=== PATIENT | male | born 1945 | race Caucasian/White ===

== ENCOUNTER 2018-03-02 09:14 | Emergency (ER) | payer MEDICARE ==
[2018-03-02 10:03] LABS: ABS Basophils 0.1 10^3/ul (0-0.2); ABS Eosinophils 0.4 10^3/ul (0-0.6); ABS Neutrophils 4.7 10^3/ul (1.5-7.7); ABS Nucleated RBC 0 10^3/ul; Eosinophil % 5.2 % (0-6); Hematocrit 43 % (42-52); Lymphocyte % 14.1 % (25-47); Mean Corpuscular HGB Conc 35 g/dl (31-36); Mean Corpuscular Hemoglobin 32 pg (27-31); Mean Corpuscular Volume 92 fL (80-94); Mean Platelet Volume 7.5 um3 (7.4-10.4); Nucleated Red Blood Cells % 0; Platelet Count 301 10^3/ul (150-450); Red Blood Count 4.64 10^6/ul (4.00-5.40); Red Cell Distribution Width 13 % (10.5-15); White Blood Count 7.2 10^3/ul (3.5-10.8)
--- NOTE | 2018-03-02 10:19 | RAD ---
INDICATION: Pneumonia/bronchitis COMPARISON: Chest x-ray 2013 TECHNIQUE: PA and lateral dual-energy views were obtained. FINDINGS: Bones/Soft Tissues: There are no acute bony findings. Cardiomediastinal: The cardiomediastinal silhouette is normal. Lungs: There are no infiltrates. Pleura: There are no pleural effusions. Other: There is mild, partial eventration right hemidiaphragm, unchanged IMPRESSION: NO ACTIVE DISEASE.
[2018-03-02 10:23] LABS: EGFR Non-African American 79.1 (>60)
[2018-03-02] MEDS ORDERED: NS 0.9% 1000 ML* 1,000 ML IV ONE (10:33)
--- NOTE | 2018-03-02 11:41 | ED ---
Respiratory - HPI Summary HPI Summary: Patient is a 72-year-old male presenting to the ED with complaints of severe sore throat secondary to coughing, fatigue, shortness of breath. History of one ICU admission due to found hyponatremia from previous upper respiratory complaint. Sodium 107 on arrival at that time 4 years ago. It is unknown if he obtained a workup for SIADH at the time. He endorses worsening cough over the past several days and has no history of COPD or asthma. He was given azithromycin and prednisone several years ago when having bronchitis and had reactions to these. Symptoms are not worse with lying flat or improved with leaning forward. Denies any fevers, sweats, chills. Has not been taking anything [id number] for medications. - History of Current Complaint Chief Complaint: EDUpperRespComplaint Stated Complaint: COUGH, SORE THROAT Time Seen by Provider: 03/02/18 09:24 Hx Obtained From: Patient Onset/Duration: Gradual Onset Timing: Constant Initial Severity: Moderate Current Severity: Moderate Pain Intensity: 8 Character: Cough (Productive) Sputum Amount: Small Sputum Color: White, Yellow, Green Aggravating Factor(s): URI Alleviating Factor(s): Nothing Associated Signs and Symptoms: URI, Nasal Congestion, Dyspnea - Risk Factors Status Asthmaticus Risk Factors: Negative Pulmonary Embolism Risk Factors: Negative Cardiac Risk Factors: Negative Pseudomonas Risk Factors: Negative Tuberculosis Risk Factors: Negative - Allergy/Home Medications Allergies/Adverse Reactions: Allergies Allergy/AdvReac Type Severity Reaction Status Date / Time azithromycin Allergy Hallucinati Verified 03/03/18 09:36 [From Zithromax Z-Go] ons prednisone Allergy Hallucinati Verified 03/03/18 09:36 ons Home Medications: Home Medications Ibuprofen TAB* [Advil TAB*] 200 mg PO Q6H PRN 03/02/18 [History Confirmed ] Multivitamins/Minerals TAB* [Theragran/minerals TAB*] 1 tab PO DAILY 03/02/18 [ History Confirmed 03/02/18] [place]-3 Fatty Acids (Nf) [Fish Oil (NF)] 1,000 mg PO DAILY 03/02/18 [History Confirmed 03/02/18] Omeprazole CAP* [Prilosec CAP* 20 MG] 20 mg PO DAILY 03/02/18 [History Confirmed 03/02/18] PMH/Surg Hx/FS Hx/Imm Hx Previously Healthy: Yes GI History: Reports: Hx Gastroesophageal Reflux Disease - ON PRILOSEC Sensory History: Reports: Hx Cataracts - LEFT EYE, Hx 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 RIGHT CATARACT EXTRACTION- DR HIGHTOWER 2009 Hx Anesthesia Reactions: No - Immunization History Hx Pertussis Vaccination: No Immunizations Up to Date: Unable to Obtain/Confirm Infectious Disease History: No Infectious Disease History: Denies: Traveled Outside the [place] in Last 30 Days - Social History Occupation: Unemployed Lives: With Family Alcohol Use: Rare Hx Substance Use: No Substance Use Type: Reports: None Hx Tobacco Use: Yes Smoking Status (MU): Former Smoker Type: Cigarettes Review of Systems Positive: Fatigue. Negative: Fever, Chills, Skin Diaphoresis Positive: Sore Throat. Negative: Epistaxis, Ear Ache, Nasal Discharge Negative: Palpitations, Chest Pain Positive: Shortness Of Breath, Cough Negative: Abdominal Pain, Vomiting, Diarrhea Musculoskeletal: Negative Skin: Negative Neurological: Negative All Other Systems Reviewed And Are Negative: Yes Physical Exam Triage Information Reviewed: Yes Vital Signs On Initial Exam: Initial Vitals Temp Pulse Resp BP Pulse Ox 99.9 F 107 22 144/71 94 03/02/18 09:15 03/02/18 09:15 03/02/18 09:15 03/02/18 09:15 03/02/18 09:15 Vital Signs Reviewed: Yes Appearance: Positive: Well-Appearing, Well-Nourished Skin: Positive: Warm, Skin Color Reflects Adequate Perfusion Head/Face: Positive: Normal Head/Face Inspection Eyes: Positive: EOMI, ALEJANDRA, Conjunctiva Clear Neck: Positive: Nontender, No Lymphadenopathy Respiratory/Lung Sounds: Positive: Clear to Auscultation, Breath Sounds Present Cardiovascular: Positive: RRR Musculoskeletal: Positive: Strength/ROM Intact Neurological: Positive: Speech Normal Psychiatric: Positive: Affect/Mood Appropriate AVPU Assessment: Alert Diagnostics - Vital Signs Vital Signs Temp Pulse Resp BP Pulse Ox 03/02/18 09:15 99.9 F 107 22 144/71 94 - Laboratory Lab Results: Lab Results 03/02/18 03/02/18 03/02/18 Range/Units 09:45 09:49 09:49 WBC 7.2 (3.5-10.8) 10^3/ul RBC 4.64 (4.00-5.40) 10^6/ul Hgb 15.0 (14.0-18.0) g/dl Hct 43 (42-52) % MCV 92 (80-94) fL MCH 32 H (27-31) pg MCHC 35 (31-36) g/dl RDW 13 (10.5-15) % Plt Count 301 (150-450) 10^3/ul MPV 7.5 (7.4-10.4) um3 Neut % (Auto) 65.9 (38-83) % Lymph % (Auto) 14.1 L (25-47) % [place] % (Auto) 13.7 H (0-7) % Eos % (Auto) 5.2 (0-6) % Baso % (Auto) 1.1 (0-2) % Absolute Neuts (auto) 4.7 (1.5-7.7) 10^3/ul Absolute Lymphs (auto) 1.0 (1.0-4.8) 10^3/ul Absolute Monos (auto) 1.0 H (0-0.8) 10^3/ul Absolute Eos (auto) 0.4 (0-0.6) 10^3/ul Absolute Basos (auto) 0.1 (0-0.2) 10^3/ul Absolute Nucleated RBC 0 10^3/ul Nucleated RBC % 0 ESR 17 (0-40) mm/Hr Sodium 123 L (135-145) mmol/L Potassium 4.2 (3.5-5.0) mmol/L Chloride 92 L (101-111) mmol/L Carbon Dioxide 22 (22-32) mmol/L Anion Gap 9 (2-11) mmol/L BUN 10 (6-24) mg/dL Creatinine 0.94 (0.67-1.17) mg/dL Est GFR ( Amer) 95.7 (>60) Est GFR (Non-Af Amer) 79.1 (>60) BUN/Creatinine Ratio 10.6 (8-20) Glucose 107 H (70-100) mg/dL Lactic Acid 0.9 (0.5-2.0) mmol/L Calcium 8.8 (8.6-10.3) mg/dL Magnesium 1.7 L (1.9-2.7) mg/dL Total Bilirubin 0.70 (0.2-1.0) mg/dL AST 37 (13-39) U/L ALT 29 (7-52) U/L Alkaline Phosphatase 70 (34-104) U/L Troponin I 0.00 (<0.04) ng/mL C-Reactive Protein 8.58 H (<8.01) mg/L Total Protein 6.9 (6.4-8.9) g/dL Albumin 4.0 (3.2-5.2) g/dL Globulin 2.9 (2-4) g/dL Albumin/Globulin Ratio 1.4 (1-3) Result Diagrams: 03/02/18 09:49 03/02/18 09:45 Lab Statement: Any lab studies that have been ordered have been reviewed, and results considered in the medical decision making process. Disposition - Course Course Of Treatment: Lungs CTA, RRR. Abdomen soft, nontender. No JVD or neck tenderness. No pharyngeal erythema. Dry mucous membranes. Nonedematous and does not seem to be fluid overloaded, with less likeliness of an SIADH component. During the course treatment, the patient is evaluated for cough, sore throat and shortness of breath. Due to previous significant hyponatremia with an ICU admission as well as NA at 123 today, serum osmolality and urine osmolality obtained to assess SIADH. These are both WNL. Likely hyponatremia secondary to bronchitis. X-ray obtained which shows no acute cardiopulmonary findings. Labs are unremarkable except for hyponatremia. We will give Levaquin at this time for bronchitis, worsening shortness of breath and mucus production. Throat pain and extreme fatigue possibly now exacerbated from a component of sleep apnea. I've advised patient to seek out a sleep study and have given him follow up with Dr. Wynne. He is given strict return precautions as hypnatremia is moderate at this point and could worsen with continued infection/URI. I discussed with the patient and he voices understanding of these return precautions. Discussed case with Dr. Retana and Dr. Gamez who agree with plan and discharge at this time. - Diagnoses Provider Diagnoses: Hyponatremia, Bronchitis Discharge - Sign-Out/Discharge Documenting (check all that apply): Discharge/Admit/Transfer - Discharge Plan Condition: Stable Disposition: HOME Prescriptions: guaiFENesin/CODIEN 100MG-10MG* [Robitussin AC 100Mg-10Mg*] 10 ml PO Q4H PRN # 240 udc MDD 60 PRN Reason: Cough Levofloxacin TAB* [Levaquin TAB*] 500 mg PO DAILY #5 tab Patient Education Materials: Sleep Apnea (DC), Acute Bronchitis (ED), Bronchospasm (ED) Referrals: Omega Nichols MD [Primary Care Provider] - Vivien Wynne MD [Medical Doctor] - Additional Instructions: Please call Dr. Wynne's office and Dr. Nichols for follow ups. Either one will be able to set up a sleep study for you to assess for sleep apnea Please also follow up with Dr. Nichols regarding your hyponatremia. If you develop worsening symptoms, return to the ED. Robitussin with codeine for cough as needed Levaquin once daily x 5 days (antibiotic) [id number] Cepacol and Chloraseptic sprays for any discomfort You may also use ibuprofen and Tylenol intermittently for any throat discomfort - Billing Disposition and Condition Condition: STABLE Disposition: Home
[2018-03-02 12:28] VITALS: BP 133/90
== END 2018-03-02 12:27 | disposition home or self-care (01) ==
LOC: ED 09:14
DX: J40 Bronchitis, not specified as acute or chronic (principal); E87.1 Hypo-osmolality and hyponatremia; K21.9 Gastro-esophageal reflux disease without esophagitis; Z87.891 Personal history of nicotine dependence; Z79.899 Other long term (current) drug therapy; Z88.3 Allergy status to other anti-infective agents; Z88.8 Allergy status to other drugs, medicaments and biological substances
CPT/HCPCS: 36415; 71046; 80053; 83605; 83735; 83930; 83935; 84300; 84484; 85025; 85652; 86140; 87040; 99282

== ENCOUNTER 2018-03-03 09:32 | Inpatient (IN) | payer MEDICARE ==
[2018-03-03] MEDS ORDERED: NS 0.9% 1000 ML* 1,000 ML IV ONE (10:13)
[2018-03-03] MEDS ORDERED: Albuterol/Ipratropium NEB.SOL* Albuterol 2.5 MG/Ipratropium 0.5 MG 3 ML INH ONE (10:13)
[2018-03-03 10:30] LABS: ABS Basophils 0.1 10^3/ul (0-0.2); ABS Eosinophils 0.3 10^3/ul (0-0.6); ABS Lymphocytes 0.9 10^3/ul (1.0-4.8); ABS Monocytes 0.8 10^3/ul (0-0.8); ABS Neutrophils 3.7 10^3/ul (1.5-7.7); ABS Nucleated RBC 0 10^3/ul; Eosinophil % 4.9 % (0-6); Hematocrit 39 % (42-52); Mean Corpuscular HGB Conc 36 g/dl (31-36); Mean Corpuscular Hemoglobin 32 pg (27-31); Mean Corpuscular Volume 91 fL (80-94); Mean Platelet Volume 7.1 um3 (7.4-10.4); Nucleated Red Blood Cells % 0.1; Platelet Count 267 10^3/ul (150-450); Red Blood Count 4.33 10^6/ul (4.00-5.40); Red Cell Distribution Width 13 % (10.5-15); White Blood Count 5.9 10^3/ul (3.5-10.8)
[2018-03-03 10:45] LABS: INR 0.99 (0.77-1.02)
[2018-03-03 10:48] LABS: EGFR Non-African American 79.1 (>60)
[2018-03-03] MEDS ORDERED: Sodium Chloride 3% HYPERTONIC* 500 ML IVPB ONE (11:36)
[2018-03-03] MEDS ORDERED: Iohexol 350* (CONTRAST) 500 ML MDV IV ONE ×2 (11:39→12:00)
[2018-03-03] MEDS ORDERED: hydrOXYzine HCL TAB* 10 MG PO PRN (11:41)
[2018-03-03] MEDS ORDERED: Acetaminophen TAB* 325 MG PO PRN (11:46)
--- NOTE | 2018-03-03 12:21 | RAD ---
INDICATION: Chest pain. Short of breath. Evaluate for pulmonary embolus. COMPARISON: Chest x-ray March 02, 2018; CT chest July 25, 2014 TECHNIQUE: Axial source images were obtained from the thoracic inlet to the hemidiaphragms following administration of a total of [address] angiographic technique was utilized. There were 2 injections due to an adequate pulmonary arterial opacification the first injection. Coronal and sagittal reconstructed images were acquired. CHEST FINDINGS: Neck/thyroid: The visualized neck to include the thyroid appear normal. Chest wall: There are no acute abnormalities of the bony thorax or chest wall. There is no supraclavicular, infraclavicular, or axillary lymphadenopathy. Lungs : There are no new pulmonary parenchymal masses or infiltrates. There is a stable 6 mm opacity in the right lung base. Long-term stability is consistent with a benign process The pulmonary interstitium appears normal. There are no endobronchial lesions. Cardiomediastinal structures: There is no CT evidence of acute pulmonary embolic disease. The heart is normal in size. There is no pericardial effusion. There is no evidence of aortic aneurysm or dissection. There is no mediastinal or hilar adenopathy. The esophagus appears normal. Pleura : There are no pleural-based masses or effusions. Other: There is a small moderate-sized hiatal hernia. IMPRESSION: DESPITE UTILIZING 2 INJECTIONS, THIS EXAMINATION IS NONDIAGNOSTIC FOR ACUTE PULMONARY EMBOLI DUE TO POOR OPACIFICATION OF THE PULMONARY ARTERIAL VESSELS. THERE IS NO CENTRAL OR SADDLE EMBOLUS. LUNGS ARE CLEAR
--- NOTE | 2018-03-03 14:01 | HP ---
CC: Dr. Nichols * HISTORY AND PHYSICAL: DATE OF ADMISSION: 03/03/18 ATTENDING PHYSICIAN: Dr. Jose Merritt * (dictation provided by Heidy Marquez NP). CHIEF COMPLAINT: Shortness of breath and cough. HISTORY OF PRESENT ILLNESS: Mr. Cabral is a 72-year-old male with a past medical history of GERD and an episode of hyponatremia associated with an upper respiratory infection in 2013 who presents today to the hospital with concern for cough causing inability to sleep. Mr. Cabral states that he first began to feel unwell on Monday. At that time, he thought he had a mild cold. Throughout the week he has felt worse and has had a persistent nagging productive cough. He has had great difficulty sleeping because of the cough and states he has not slept since Monday. He denies any specific shortness of breath. He has had no chest pain. He has had no fever. He has had a poor appetite, although he has been drinking plenty of water. He came to the emergency room yesterday for these symptoms and had a workup including a chest x - ray that was normal. His labs showed a normal WBC. Vitals were stable. He did have a sodium of 123 with urine sodium and osmolality consistent with SIADH. However, he has a history of hyponatremia in our records on multiple occasions back in 2013. He was prescribed levaquin and discharged to home. Today he continued to feel poorly and could not sleep and therefore decided to come back to the emergency room. He notes that while waiting for his landlord to pick him up for transport this morning he did become very dizzy and fall out of his chair. Today, Mr. Cabral has been found to have a worsening hyponatremia with a sodium of 117. He is mentating appropriately. His vitals are stable. His other labs are remarkable only for an elevated CK to 1042. His D-dimer is 387. A CTA of the chest is pending. PAST MEDICAL HISTORY: 1. GERD. 2. Hyponatremia. MEDICATIONS: 1. Ibuprofen 200 mg p.o. q.6 hours p.r.n. 2. Levaquin 500 mg p.o. daily (prescribed yesterday). 3. Multivitamin with mineral 1 tab p.o. daily. 4. [place]-3 fatty acid 1000 mg p.o. daily. 5. Omeprazole 20 mg p.o. daily. 6. Guaifenesin with codeine 100 mg-10 mg, 10 mL p.o. q.4 hours p.r.n. ALLERGIES: To AZITHROMYCIN and PREDNISONE. FAMILY HISTORY: The patient reports that his mother is still alive and well at age 90. Father when he was 4 years old in an accident. SOCIAL HISTORY: The patient is a former smoker, he quit about 30 years ago, but does have over 25 pack-year history of smoking. He drinks about 4 beers per week. He states his friend, Sigifredo Aguirre, would be the healthcare proxy. REVIEW OF SYSTEMS: A 14-point review of systems was completed with Mr. Cabral and all those not mentioned above were negative. PHYSICAL EXAMINATION GENERAL: Mr. Cabral is lying in the bed. He is in absolutely no acute distress. VITAL SIGNS: Temperature 98.5, pulse rate 91, respiratory rate 18, O2 saturation 94% on room air, blood pressure 134/73. LUNGS: Clear to auscultation bilaterally. No accessory muscle use. Good aeration. HEART: S1, S2. No murmur, rub, or gallop and regular. ABDOMEN: Soft, nontender with bowel sounds positive x4. EXTREMITIES: No cyanosis or edema. NEURO: He is alert. He is oriented x3. He moves all extremities equally. There is no facial asymmetry or focal weakness. Extraocular movements are intact. SKIN: Intact. DIAGNOSTIC STUDIES/LAB DATA: WBC 5.9, hemoglobin 14.0, hematocrit 39, platelet count 267. INR is 0.99. D-dimer 387. Sodium is reported verbally to be 117, potassium 4.1, chloride 84, serum bicarbonate 26, BUN 9, creatinine 0.94. Lactic acid 0.8. Magnesium 1.7. Total CK 1042. CK-MB 7.1. Troponin 0.01. CRP 16.92. BNP is 23. Lipase less than 10. Chest x-ray from yesterday showed no acute process. Urinalysis from yesterday showed urine osm of 574 and a urine random sodium of 109. ASSESSMENT: Mr. Cabral is a 72-year-old male with a past medical history of admission to our hospital in 2013 with hyponatremia associated with an episode of bronchitis and upper respiratory infection, who returns today with persistent worsening cough and worsening hyponatremia. Our plans are for inpatient admission as I expect his length of stay to be greater than 2 days for the followin. Hyponatremia: This episode sounds very similar to a previous episode back in 2014. At that time, he had a prolonged hospitalization, required 3% saline with SIADH thought to be secondary to respiratory infection. Though he was dizzy earlier, he does not appear to be at all symptomatic from his hyponatremia. Plan to fluid restrict and recheck his sodium level this afternoon. At that point, consideration will be given for possible initiation of 3% saline. In terms of etiology, his urine studies are consistent with SIADH. His chest x-ray was normal, but I am going to obtain a CTA chest now due to elevated D-dimer, history of a pulmonary nodule (which was not followed up on in 2013) and a long-term history of smoking. 2. Bronchitis: The patient has no evidence of acute infection. He was started on Levaquin yesterday, but I am going to discontinue that as I do not think there is any real indication for antibiotics at this point pending review of the CTA chest. 3. Gastroesophageal reflux disease. Continue omeprazole. 4. DVT prophylaxis: Heparin subcu. 5. Code status is full code. TIME SPENT: Approximately 60 minutes was spent in the admission of this patient , more than half of that time was spent with the patient at the bedside reviewing the events leading up to this hospitalization, performing the physical examination, and reviewing my plan of care. HEIDY MARQUEZ NP [id number]/[facility] #: [id number] YOSELIN
--- NOTE | 2018-03-03 15:40 | PN ---
Progress Note - Progress Note Date of Service: 03/03/18 Note: Critical Care Attendin72 y/o male with a recent Hx of nonproductive cough associated with increased thirst, increased water intake, and a serum sodium of 117 mEq/L. There are no symptoms consistent with hyponatremia. Patient claims he is unable to sleep because of cough. Patient has past Hx hyponatremia associated with infection ( in 2013) with urinary indices consistent with SIADH at that time. 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 This condition can be associated with any source of stress, such as loss of sleep (which the patient complains of). Recommend: Water restriction for now (hypertonic saline is not necessary). If the patient does not tolerate water restriction (which seems likely in this case ), then Rx with tolvaptan (vasopressin receptor jen) would be helpful - however, this drug is not available through the hospital formulary. Case discussed with Heidy Marquez.
--- NOTE | 2018-03-03 15:49 | ED ---
Carla Gómez Jade, scribed for Mark Champion MD on 03/03/18 at 1001 . Respiratory - HPI Summary HPI Summary: Pt is a 72 y/o male who presents to the ED c/o SOB. He was here yesterday for the same complaint. Pt has had bronchitis for 1 week, which has been getting worse. He states he has not gotten any sleep for 5 days, because every time he lays flat he becomes SOB and starts coughing. He also states hes had no appetite since yesterday, and is mildly nauseated. Pt has been taking Ibuprofen and Benadryl for his symptoms. Yesterday, it was thought he maybe had sleep apnea as well, and was prescribed antibiotics and Robitussin with codeine, which didnt help him sleep. Pt also takes Prilosec. He denies any CP, abdominal bloating, or ankle swelling. No PMHx of CHF. PMHx hospitalization for hyponatremia. Today and yesterday he has mildly low sodium levels. - History of Current Complaint Chief Complaint: EDShortnessOfBreath Stated Complaint: DIFF BREATHING Time Seen by Provider: 03/03/18 09:38 Hx Obtained From: Patient Onset/Duration: Gradual Onset, Still Present Current Severity: None Pain Intensity: 0 Character: Cough (Nonproductive), Orthopnea Sputum Amount: Scant Aggravating Factor(s): Deep Breaths Alleviating Factor(s): Nothing Associated Signs and Symptoms: SOB - Allergy/Home Medications Allergies/Adverse Reactions: Allergies Allergy/AdvReac Type Severity Reaction Status Date / Time azithromycin Allergy Hallucinati Verified 03/03/18 09:36 [From Zithromax Z-Go] ons prednisone Allergy Hallucinati Verified 03/03/18 09:36 ons PMH/Surg Hx/FS Hx/Imm Hx GI History: Reports: Hx Gastroesophageal Reflux Disease - ON PRILOSEC Sensory History: Reports: Hx Cataracts - LEFT EYE, Hx 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 RIGHT CATARACT EXTRACTION- DR HIGHTOWER 2009 Hx Anesthesia Reactions: No Infectious Disease History: No Infectious Disease History: Denies: Traveled Outside the [place] in Last 30 Days - Family History Known Family History: Positive: Other - Cancer (mother) - Social History Alcohol Use: Rare Substance Use Type: Reports: None Smoking Status (MU): Former Smoker Type: Cigarettes Review of Systems Negative: Fever Cardiovascular: Other - NEGATIVE: pedal edema Negative: Chest Pain Positive: Shortness Of Breath, Cough Gastrointestinal: Other - NEGATIVE: bloating Positive: Nausea, Other - Decreased appetite All Other Systems Reviewed And Are Negative: Yes Physical Exam - Summary Physical Exam Summary: General: well-appearing, no pain distress Skin: warm, color reflects adequate perfusion, dry Head: normal Eyes: EOMI, ALEJANDRA ENT: normal Neck: supple, nontender Respiratory: breath sounds present, rhonchi Cardiovascular: RRR Abdomen: soft, nontender Bowel: present Musculoskeletal: normal, strength/ROM intact Neurological: sensory/motor intact, A&O x3 Psychological: affect/mood appropriate Triage Information Reviewed: Yes Vital Signs On Initial Exam: Initial Vitals Temp Pulse Resp BP Pulse Ox 98.5 F 97 20 156/80 94 03/03/18 09:33 03/03/18 09:33 03/03/18 09:33 03/03/18 09:33 03/03/18 09:33 Vital Signs Reviewed: Yes Diagnostics - Vital Signs Vital Signs Temp Pulse Resp BP Pulse Ox 03/03/18 09:33 98.5 F 97 20 156/80 94 - Laboratory Lab Results: Lab Results 03/03/18 03/03/18 03/03/18 Range/Units 10:21 10:21 10:21 WBC 5.9 (3.5-10.8) 10^3/ul RBC 4.33 (4.00-5.40) 10^6/ul Hgb 14.0 (14.0-18.0) g/dl Hct 39 L (42-52) % MCV 91 (80-94) fL MCH 32 H (27-31) pg MCHC 36 (31-36) g/dl RDW 13 (10.5-15) % Plt Count 267 (150-450) 10^3/ul MPV 7.1 L (7.4-10.4) um3 Neut % (Auto) 64.0 (38-83) % Lymph % (Auto) 16.0 L (25-47) % [place] % (Auto) 13.9 H (0-7) % Eos % (Auto) 4.9 (0-6) % Baso % (Auto) 1.2 (0-2) % Absolute Neuts (auto) 3.7 (1.5-7.7) 10^3/ul Absolute Lymphs (auto) 0.9 L (1.0-4.8) 10^3/ul Absolute Monos (auto) 0.8 (0-0.8) 10^3/ul Absolute Eos (auto) 0.3 (0-0.6) 10^3/ul Absolute Basos (auto) 0.1 (0-0.2) 10^3/ul Absolute Nucleated RBC 0 10^3/ul Nucleated RBC % 0.1 INR (Anticoag Therapy) 0.99 (0.77-1.02) APTT 31.0 (26.0-36.3) seconds D-Dimer, Quantitative 387 H (Less Than 230) ng/mL Sodium 117 L* (135-145) mmol/L Potassium 4.1 (3.5-5.0) mmol/L Chloride 84 L (101-111) mmol/L Carbon Dioxide 26 (22-32) mmol/L Anion Gap 7 (2-11) mmol/L BUN 9 (6-24) mg/dL Creatinine 0.94 (0.67-1.17) mg/dL Est GFR ( Amer) 95.7 (>60) Est GFR (Non-Af Amer) 79.1 (>60) BUN/Creatinine Ratio 9.6 (8-20) Glucose 100 (70-100) mg/dL Lactic Acid (0.5-2.0) mmol/L Calcium 8.9 (8.6-10.3) mg/dL Magnesium 1.7 L (1.9-2.7) mg/dL Total Bilirubin 0.80 (0.2-1.0) mg/dL AST 41 H (13-39) U/L ALT 28 (7-52) U/L Alkaline Phosphatase 63 (34-104) U/L Total Creatine Kinase 1042 H (10-223) U/L CK-MB (CK-2) 7.1 H (0.6-6.3) ng/mL Troponin I 0.01 (<0.04) ng/mL C-Reactive Protein 16.92 H (<8.01) mg/L B-Natriuretic Peptide ( - 100) pg/mL Total Protein 6.3 L (6.4-8.9) g/dL Albumin 3.8 (3.2-5.2) g/dL Globulin 2.5 (2-4) g/dL Albumin/Globulin Ratio 1.5 (1-3) Lipase < 10 L (11.0-82.0) U/L TSH 3.64 (0.34-5.60) mcIU/mL 03/03/18 03/03/18 Range/Units 10:21 10:21 WBC (3.5-10.8) 10^3/ul RBC (4.00-5.40) 10^6/ul Hgb (14.0-18.0) g/dl Hct (42-52) % MCV (80-94) fL MCH (27-31) pg MCHC (31-36) g/dl RDW (10.5-15) % Plt Count (150-450) 10^3/ul MPV (7.4-10.4) um3 Neut % (Auto) (38-83) % Lymph % (Auto) (25-47) % [place] % (Auto) (0-7) % Eos % (Auto) (0-6) % Baso % (Auto) (0-2) % Absolute Neuts (auto) (1.5-7.7) 10^3/ul Absolute Lymphs (auto) (1.0-4.8) 10^3/ul Absolute Monos (auto) (0-0.8) 10^3/ul Absolute Eos (auto) (0-0.6) 10^3/ul Absolute Basos (auto) (0-0.2) 10^3/ul Absolute Nucleated RBC 10^3/ul Nucleated RBC % INR (Anticoag Therapy) (0.77-1.02) APTT (26.0-36.3) seconds D-Dimer, Quantitative (Less Than 230) ng/mL Sodium (135-145) mmol/L Potassium (3.5-5.0) mmol/L Chloride (101-111) mmol/L Carbon Dioxide (22-32) mmol/L Anion Gap (2-11) mmol/L BUN (6-24) mg/dL Creatinine (0.67-1.17) mg/dL Est GFR ( Amer) (>60) Est GFR (Non-Af Amer) (>60) BUN/Creatinine Ratio (8-20) Glucose (70-100) mg/dL Lactic Acid 0.8 (0.5-2.0) mmol/L Calcium (8.6-10.3) mg/dL Magnesium (1.9-2.7) mg/dL Total Bilirubin (0.2-1.0) mg/dL AST (13-39) U/L ALT (7-52) U/L Alkaline Phosphatase (34-104) U/L Total Creatine Kinase (10-223) U/L CK-MB (CK-2) (0.6-6.3) ng/mL Troponin I (<0.04) ng/mL C-Reactive Protein (<8.01) mg/L B-Natriuretic Peptide 23 ( - 100) pg/mL Total Protein (6.4-8.9) g/dL Albumin (3.2-5.2) g/dL Globulin (2-4) g/dL Albumin/Globulin Ratio (1-3) Lipase (11.0-82.0) U/L TSH (0.34-5.60) mcIU/mL Result Diagrams: 03/03/18 10:21 03/03/18 10:21 Lab Statement: Any lab studies that have been ordered have been reviewed, and results considered in the medical decision making process. - CT Chest/Thorax CTA CT Interpretation Completed By: Radiologist - 11:32: DESPITE UTILIZING 2 INJECTIONS, THIS EXAMINATION IS NONDIAGNOSTIC FOR ACUTE PULMONARY EMBOLI DUE TO POOR OPACIFICATION OF THE PULMONARY ARTERIAL VESSELS. THERE IS NO CENTRAL OR SADDLE EMBOLUS. LUNGS ARE CLEAR. ED physician reviewed radiology report. - EKG 10:25 Cardiac Rate: NL - 94 bpm EKG Rhythm: Sinus Rhythm ST Segment: Normal Ectopy: None Disposition - Course Course Of Treatment: ADMIT HOSPITALIST. CRITICAL CARE TIME LESS THAN 30 MINUTES. - Diagnoses Provider Diagnoses: Hyponatremia, Dyspnea Discharge - Sign-Out/Discharge Documenting (check all that apply): Discharge/Admit/Transfer - Admit - Discharge Plan Condition: Stable Disposition: ADMITTED TO [facility] - Billing Disposition and Condition Condition: STABLE Disposition: Admitted to [facility] The documentation as recorded by the jovitaibCarla chaidez Jade accurately reflects the service I personally performed and the decisions made by me, Mark Champion MD.
[2018-03-03] MEDS: Heparin VIAL(*) 5000 UNITS/ML VIAL (FIVE THOUSAND) SUBCUT SCH ×2 (16:01→21:27)
[2018-03-03] MEDS: guaiFENesin/CODIEN 100MG-10MG* 5 ML UDC PO PRN (20:16)
[2018-03-03] MEDS: Ibuprofen TAB* 400 MG PO PRN (21:57)
[2018-03-04] MEDS: hydrOXYzine HCL TAB* 25 MG PO PRN ×2 (00:20→19:52)
[2018-03-04] MEDS: Benzonatate CAP* 100 MG PO PRN ×2 (00:20→19:52)
[2018-03-04] MEDS: guaiFENesin/CODIEN 100MG-10MG* 5 ML UDC PO PRN ×4 (00:45→19:53)
[2018-03-04] MEDS: Heparin VIAL(*) 5000 UNITS/ML VIAL (FIVE THOUSAND) SUBCUT SCH ×3 (05:41→21:57)
[2018-03-04] MEDS: Omeprazole CAP* 20 MG PO SCH (07:46)
[2018-03-04] MEDS ORDERED: Magnesium Sulfate 2 GM IV* 2 GM/50 ML BAG IVPB ONE (08:39)
[2018-03-04 12:38] LABS: EGFR Non-African American 68.1 (>60)
[2018-03-04] MEDS: Ibuprofen TAB* 400 MG PO PRN (15:33)
[2018-03-04] MEDS: Albuterol 2.5 MG/3 ML NEB.SOL* (0.083%) INH PRN (15:41)
[2018-03-04] MEDS: Benzocaine/Menthol LOZ* 1 LOZENGE MT PRN (15:57)
--- NOTE | 2018-03-04 17:41 | PN ---
Subjective Date of Service: 03/04/18 Interval History: Patient asymptomatic of dizziness, unsteady gait, confusion, or other signs of sodium depletion. Complains of continues cough, wheezing and SOB. Denies CP, N/V , F/C, abdominal pain, diarrhea, or dysuria. States he had a poor reaction previously to prednisone but got good relief of his SOB with albuterol inhaler. Family History: Unchanged from Admission Social History: Unchanged from Admission Past Medical History: Unchanged from Admission Objective Active Medications: Albuterol (Ventolin 2.5 Mg/3 Ml Neb.Sofya*) 2.5 mg INH Q4H PRN PRN Reason: SOB/WHEEZING Last Admin: 03/04/18 15:41 Dose: 2.5 mg Benzonatate (Tessalon Cap*) 100 mg PO BID PRN PRN Reason: COUGH Last Admin: 03/04/18 00:20 Dose: 100 mg Guaifenesin/Codeine Phosphate (Robitussin Ac 100mg-10mg*) 10 ml PO Q4H PRN PRN Reason: COUGH Last Admin: 03/04/18 12:43 Dose: 10 ml Heparin Sodium (Porcine) (Heparin Vial(*)) 5,000 units SUBCUT Q8HR [facility] Last Admin: 03/04/18 12:43 Dose: 5,000 units Hydroxyzine HCl (Atarax Tab*) 25 mg PO BEDTIME PRN PRN Reason: INSOMNIA Last Admin: 03/04/18 00:20 Dose: 25 mg Ibuprofen (Motrin Tab*) 400 mg PO Q6H PRN PRN Reason: HEADACHE/DISCOMFORT Last Admin: 03/04/18 15:33 Dose: 400 mg Omeprazole (Prilosec Cap*) 20 mg PO 0730 [facility] Last Admin: 03/04/18 07:46 Dose: 20 mg Sodium Chloride (Sodium Chloride Tab*) 1 gm PO DAILY [facility] Throat Lozenges (Chloraseptic Maryana*) 1 maryana MT Q6H PRN PRN Reason: SORE THROAT Last Admin: 03/04/18 15:57 Dose: 1 maryana Vital Signs - 8 hr 03/04/18 03/04/18 03/04/18 11:54 12:20 14:55 Temperature 98.1 F 98.1 F Pulse Rate 70 82 Respiratory 18 17 18 Rate Blood Pressure 142/73 132/80 (mmHg) O2 Sat by Pulse 98 98 Oximetry 03/04/18 03/04/18 03/04/18 15:24 15:27 15:44 Temperature 98.4 F Pulse Rate 95 105 Respiratory 18 16 Rate Blood Pressure 104/43 106/58 (mmHg) O2 Sat by Pulse 93 94 Oximetry Oxygen Devices in Use Now: None Appearance: Patient is a 72yo male who appears stated age and is sitting in the bed in [facility]. Eyes: No Scleral Icterus, PERRLA Ears/Nose/Mouth/Throat: NL Teeth, Lips, Gums, Clear Oropharnyx, Mucous Membranes Moist Neck: NL Appearance and Movements; NL JVP, Trachea Midline Respiratory: Symmetrical Chest Expansion and Respiratory Effort, - - Wheezes and Rhonchi throughout. Cardiovascular: NL Sounds; No Murmurs; No JVD, RRR, - - Trace LE edema. Abdominal: NL Sounds; No Tenderness; No Distention, No Hepatosplenomegaly Lymphatic: No Cervical Adenopathy Extremities: No Edema, No Clubbing, Cyanosis Skin: No Rash or Ulcers, No Nodules or Sclerosis Neurological: Alert and Oriented x 3, NL Sensation, NL Muscle Strength and Tone , - - CN II-XII intact. Result Diagrams: 03/03/18 10:21 03/04/18 16:50 Additional Lab and Data: Lab Results Microbiology and Other Data: Microbiology 03/03/18 13:15 Nasal Screen MRSA (PCR) - Final Nasal Mrsa Not Detected Assess/Plan/Problems-Billing Assessment: Patient is a 72yo male with a PMH for hyponatremia, here with bronchitis and recurrent hyponatremia improving slowly with fluid restriction. - Patient Problems (1) Hyponatremia Current Visit: No Status: Acute Priority: High Onset Date: 05/05/14 Code (s): E87.1 - HYPO-OSMOLALITY AND HYPONATREMIA SNOMED Code(s): 02351208 Comment: Initially sodium of 117. Previous episode with sodium to 108 in setting of respiratory infection. Improving. Goal of improvement of 6 in sodium level daily. Begin salt tablets tomorrow. 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 Will check cortisol in AM. TSH normal. Grossly asymptomatic. (2) Bronchitis Current Visit: Yes Status: Acute Code(s): J40 - BRONCHITIS, NOT SPECIFIED ACUTE OR CHRONIC SNOMED Code(s): 77305325 Comment: Likely viral. No indication for antibiotics. Albuterol inhaler and supportive care. Previously intolerant of systemic steroids. (3) Rhabdomyolysis Current Visit: Yes Status: Acute Code(s): M62.82 - RHABDOMYOLYSIS SNOMED Code(s): 792936665 Comment: CPK elevated and trending up. Will order myogobin and follow. Unknown cause. No fall or other trauma. Possibly from viral infection concurrently causing bronchitis. (4) DNR (do not resuscitate) Current Visit: Yes Status: Acute (5) DVT prophylaxis Current Visit: Yes Status: Acute Code(s): LSS5161 - SNOMED Code(s): 371824014 Comment: Heparin SubQ. Status and Disposition: Inpatient.
[2018-03-05] MEDS: guaiFENesin/CODIEN 100MG-10MG* 5 ML UDC PO PRN (01:13)
[2018-03-05] MEDS: Benzocaine/Menthol LOZ* 1 LOZENGE MT PRN ×3 (02:54→21:54)
[2018-03-05] MEDS: Omeprazole CAP* 20 MG PO SCH (05:44)
[2018-03-05] MEDS: Heparin VIAL(*) 5000 UNITS/ML VIAL (FIVE THOUSAND) SUBCUT SCH ×3 (05:45→21:55)
[2018-03-05] MEDS ORDERED: Omeprazole CAP* 20 MG PO SCH (06:00)
[2018-03-05 07:02] LABS: ABS Basophils 0.1 10^3/ul (0-0.2); ABS Eosinophils 0.6 10^3/ul (0-0.6); ABS Lymphocytes 1.3 10^3/ul (1.0-4.8); ABS Monocytes 0.9 10^3/ul (0-0.8); ABS Neutrophils 3.8 10^3/ul (1.5-7.7); ABS Nucleated RBC 0 10^3/ul; Eosinophil % 9.3 % (0-6); Hematocrit 39 % (42-52); Hemoglobin 13.9 g/dl (14.0-18.0); Lymphocyte % 18.8 % (25-47); Mean Corpuscular HGB Conc 36 g/dl (31-36); Mean Corpuscular Hemoglobin 33 pg (27-31); Mean Corpuscular Volume 91 fL (80-94); Mean Platelet Volume 7.3 um3 (7.4-10.4); Nucleated Red Blood Cells % 0; Platelet Count 282 10^3/ul (150-450); Red Blood Count 4.26 10^6/ul (4.00-5.40); Red Cell Distribution Width 13 % (10.5-15); White Blood Count 6.6 10^3/ul (3.5-10.8)
[2018-03-05 07:16] LABS: EGFR Non-African American 63.3 (>60)
[2018-03-05] MEDS: Ibuprofen TAB* 400 MG PO PRN ×2 (07:38→21:53)
[2018-03-05] MEDS: Sodium Chloride TAB* 1 GM PO SCH (07:38)
[2018-03-05] MEDS: Albuterol 2.5 MG/3 ML NEB.SOL* (0.083%) INH PRN ×2 (10:43→18:22)
--- NOTE | 2018-03-05 16:37 | PN ---
Subjective Date of Service: 03/05/18 Interval History: Patient feeling better, breathing improved, decreased cough. Increased sputum production and decreased SOB with use of flutter valve particularly. Patient denies dizziness, F/C, N/V, abdominal pain, diarrhea, CP, weakness, changes in vision or other pain. Family History: Unchanged from Admission Social History: Unchanged from Admission Past Medical History: Unchanged from Admission Objective Active Medications: Albuterol (Ventolin 2.5 Mg/3 Ml Neb.Sofya*) 2.5 mg INH Q4H PRN PRN Reason: SOB/WHEEZING Last Admin: 03/05/18 10:43 Dose: 2.5 mg Benzonatate (Tessalon Cap*) 100 mg PO BID PRN PRN Reason: COUGH Last Admin: 03/04/18 19:52 Dose: 100 mg Guaifenesin/Codeine Phosphate (Robitussin Ac 100mg-10mg*) 10 ml PO Q4H PRN PRN Reason: COUGH Last Admin: 03/05/18 01:13 Dose: 10 ml Heparin Sodium (Porcine) (Heparin Vial(*)) 5,000 units SUBCUT Q8HR [facility] Last Admin: 03/05/18 13:52 Dose: 5,000 units Hydroxyzine HCl (Atarax Tab*) 25 mg PO BEDTIME PRN PRN Reason: INSOMNIA Last Admin: 03/04/18 19:52 Dose: 25 mg Ibuprofen (Motrin Tab*) 400 mg PO Q6H PRN PRN Reason: HEADACHE/DISCOMFORT Last Admin: 03/05/18 07:38 Dose: 400 mg Omeprazole (Prilosec Cap*) 20 mg PO 0730 [facility] Last Admin: 03/05/18 05:44 Dose: 20 mg Sodium Chloride (Sodium Chloride Tab*) 1 gm PO DAILY [facility] Last Admin: 03/05/18 07:38 Dose: 1 gm Throat Lozenges (Chloraseptic Maryana*) 1 maryana MT Q6H PRN PRN Reason: SORE THROAT Last Admin: 03/05/18 13:52 Dose: 1 maryana Vital Signs - 8 hr 03/05/18 03/05/18 03/05/18 10:43 11:44 15:10 Temperature 98.1 F 99.1 F Pulse Rate 102 99 89 Respiratory 16 18 18 Rate Blood Pressure 103/64 114/59 (mmHg) O2 Sat by Pulse 95 93 92 Oximetry Oxygen Devices in Use Now: None Appearance: Patient is a 72yo male who appears stated age and is sitting in the bed in [facility]. Eyes: No Scleral Icterus, PERRLA Ears/Nose/Mouth/Throat: NL Teeth, Lips, Gums, Clear Oropharnyx, Mucous Membranes Moist Neck: NL Appearance and Movements; NL JVP, Trachea Midline Respiratory: Symmetrical Chest Expansion and Respiratory Effort, - - Wheezes and Rhonchi throughout. No improvement from previous exam. Cardiovascular: NL Sounds; No Murmurs; No JVD, RRR, No Edema Abdominal: NL Sounds; No Tenderness; No Distention, No Hepatosplenomegaly Lymphatic: No Cervical Adenopathy Extremities: No Edema, No Clubbing, Cyanosis Skin: No Rash or Ulcers, No Nodules or Sclerosis Neurological: Alert and Oriented x 3, NL Sensation, NL Muscle Strength and Tone , - - CN II-XII intact. Result Diagrams: 03/05/18 06:32 03/05/18 15:46 Additional Lab and Data: Lab Results Microbiology and Other Data: Microbiology 03/03/18 13:15 Nasal Screen MRSA (PCR) - Final Nasal Mrsa Not Detected Assess/Plan/Problems-Billing Assessment: Patient is a 72yo male with a PMH for hyponatremia, here with bronchitis and recurrent hyponatremia improving slowly with fluid restriction. - Patient Problems (1) Hyponatremia Current Visit: No Status: Acute Priority: High Onset Date: 05/05/14 Code (s): E87.1 - HYPO-OSMOLALITY AND HYPONATREMIA SNOMED Code(s): 85241941 Comment: Initially sodium of 117. Previous episode with sodium to 108 in setting of respiratory infection. Improving. Most recently 128. Goal of improvement of 6 in sodium level daily. Begin salt tablets tomorrow. 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 Cortisol and TSH normal. Grossly asymptomatic. (2) Bronchitis Current Visit: Yes Status: Acute Code(s): J40 - BRONCHITIS, NOT SPECIFIED ACUTE OR CHRONIC SNOMED Code(s): 84036917 Comment: Likely viral. No indication for antibiotics. Albuterol inhaler and supportive care. Previously intolerant of systemic steroids. (3) Rhabdomyolysis Current Visit: Yes Status: Acute Code(s): M62.82 - RHABDOMYOLYSIS SNOMED Code(s): 326450164 Comment: CPK elevated and trending down today. Will order myogobin and follow. Unknown cause. No fall or other trauma. Possibly from viral infection concurrently causing bronchitis. Will monitor. No evidence of MARCK. (4) DVT prophylaxis Current Visit: Yes Status: Acute Code(s): YBQ7475 - SNOMED Code(s): 033150414 Comment: Heparin SubQ. (5) DNR (do not resuscitate) Current Visit: Yes Status: Acute Status and Disposition: Inpatient.
[2018-03-05] MEDS: hydrOXYzine HCL TAB* 25 MG PO PRN (23:24)
[2018-03-06] MEDS: Heparin VIAL(*) 5000 UNITS/ML VIAL (FIVE THOUSAND) SUBCUT SCH (05:54)
[2018-03-06 08:23] LABS: EGFR Non-African American 75.4 (>60)
[2018-03-06] MEDS: Sodium Chloride TAB* 1 GM PO SCH (08:43)
[2018-03-06] MEDS: Ibuprofen TAB* 400 MG PO PRN (08:44)
[2018-03-06] MEDS: Omeprazole CAP* 20 MG PO SCH (08:44)
[2018-03-06 08:58] VITALS: BP 135/50
--- NOTE | 2018-03-07 23:40 | DS ---
CC: Dr. Omega Nichols * DISCHARGE SUMMARY: DATE OF ADMISSION: 03/03/18 DATE OF DISCHARGE: 03/06/18 PRIMARY CARE PROVIDER: Dr. Omega Nichols. MY ATTENDING PHYSICIAN WHILE IN THE HOSPITAL: Dr. Casey Vo* (DICTATED BY STEPHANIE HILL) PRIMARY DISCHARGE DIAGNOSES: 1. Hyponatremia. 2. Bronchitis. SECONDARY DISCHARGE DIAGNOSES: 1. History of severe hyponatremia. 2. Gastroesophageal reflux disease. STUDIES DONE WHILE IN THE HOSPITAL: Chest thorax CTA from 03/03/18, read as despite utilizing 2 injections the examination is nondiagnostic for acute pulmonary emboli due to poor opacification of the pulmonary artery vessels. There is no central or saddle embolus. Lungs are clear. Electrocardiogram from 03/03/18, read as normal sinus rhythm, left axis deviation, no hypertrophy or enlargement, no blocks, rate 94, QTc 444. No other abnormalities. MEDICATIONS AT DISCHARGE: 1. Omeprazole 20 mg p.o. daily. 2. Fish oil 1000 mg p.o. daily. 3. Multivitamin 1 tab p.o. daily. 4. Robitussin. 5. Codeine 10 mL p.o. q.4 hours as needed. 6. Albuterol inhaler 1 puff inhalation q.4 hours as needed. 7. Chloraseptic lozenge one lozenge q.6 hours as needed. 8. Benzonatate 100 mg p.o. b.i.d. as needed. 9. Hydroxyzine 25 mg p.o. at bedtime as needed. 10. Ibuprofen 400 mg p.o. q.6 hours as needed. 11. Sodium chloride 1 g p.o. daily. New medications at discharge: 1. Albuterol. 2. Chloraseptic 3. Tessalon 4. Hydroxyzine. 5. Ibuprofen. 6. Sodium chloride. Medications discontinued at discharge: Levofloxacin. HOSPITAL COURSE: This is a brief summary of the patient's presentation. For more details, please see the history and physical from Heidy Marquez NP on . In brief, the patient is a 72-year-old male with past medical history significant for the above who presented with mild productive cough, difficulty sleeping and pain in his left side related to cough. The patient came to the emergency department on 03/02/18, sent home after chest x-ray and white blood cell count were normal, but he had sodium of 123 with osmolality consistent with SIADH at 550 approximately. The patient continued to feel poorly, had an episode of severe dizziness where he almost fell. The patient came to the emergency department, had hyponatremia. The patient, when he was seated, did fall out of a chair. The patient had sodium 117 when he came into the hospital. The patient also had D-dimer of 387 prompting the above CTA, which showed no pulmonary embolus. The patient had no other complaints, was admitted to the hospital for bronchitis and for severe symptomatic hyponatremia. The patient was treated with fluid restriction only initially. The patient's sodium increased to 6 points in the first 24 hours he was in the hospital. The patient had persistent cough. The patient had elevated creatinine kinase likely from his fall, which increased to a peak of 287 and started to decreasing after that. Patient's sodium continued to climb steadily, increasing 5 more points in the second 24 hours of his hospitalization and then 5 additional points in the next 24 hours of hospitalization. The patient had a normal TSH and cortisol. The patient did not necessitate treatment with hypertonic saline. The patient was started on sodium tablet on the second day of hospitalization with good response. The patient's cough and sleep improved while he was in the hospital. The patient describes a chronic productive cough, which significantly interferes with his sleep, this appeared to be an exacerbation while he is in the hospital. The patient also described a chronic nasal congestion and postnasal drip as well as snoring and significant sleep disturbance with daytime somnolence. The patient is stable now for discharge on 03/07/18. PHYSICAL EXAMINATION AT DISCHARGE: General: The patient is an 72-year-old male who appears stated age and sitting comfortably in bed, no acute distress. HEENT: Head: Normocephalic, atraumatic. Sclerae anicteric. No conjunctival injection. Nasal mucosa moist. Oral mucosa moist. No pharyngeal erythema, discharge or exudates. Vital Signs: Temperature 98.2, pulse rate 69, respiratory rate 20, oxygen saturation 97% on room air, blood pressure 135/50. Neck: Supple, nontender. No lymphadenopathy. No carotid bruit auscultated. No JVD. Cardiac: Regular rate and rhythm. No clicks, murmurs, gallops, or rubs. Pulses 2+ in bilateral dorsalis pedis, posterior tibialis, and radial areas. No lower extremity edema noted. Respiratory: Clear to auscultation bilaterally. No wheezes, rales, or rhonchi. Good air exchange bilaterally. Abdomen: Soft, nontender, nondistended. Bowel sounds present, normoactive in all 4 quadrants. No hepatosplenomegaly. No abdominal bruits auscultated. No hepatojugular reflux. Genitourinary: No suprapubic or CVA tenderness. Skin: Clean, dry, and intact. No rash. Neuro: Cranial nerves II through XII intact. No focal deficits. Alert and oriented x3. Normal gait. Psychiatric: Pleasant and cooperative. LABORATORY DATA ON DAY OF DISCHARGE: Sodium 130, chloride 98, potassium 3.8, anion gap 7, BUN 12, creatinine 0.98, glucose 95, calcium 7.9. DISCHARGE PLAN: The patient will be discharged to home. The patient will follow up closely with his primary care provider with a repeat BMP at that time. Patient should continue on sodium supplementation until that time and it may be discontinued at the discretion of primary provider if his sodium has normalized. The likely cause of his hyponatremia is respiratory infection likely from viral bronchitis secondary to causing SIADH. This has happened previously to the patient with more severe hyponatremia in the setting of bronchitis. If the patient has an exacerbation of chronic baseline cough, the patient should seek medical attention immediately with concern for hyponatremia and possible need for supplementation. The patient should continue with a 2 liter per day fluid restriction at this time. The patient should have a referral possibly for pulmonary function testing as he reports a chronic cough and had significant smoking history. Antihistamine therapy as well as nasal spray or inhalers for his chronic cough should be entertained. The patient should continue on Tessalon and guaifenesin at home. The patient is to return hospital for falls, chest pain, shortness of breath, or other alarming symptoms. The patient should have a regular unrestricted diet with the above caveat and engage in activity as tolerated. TIME SPENT: Approximately 60 minutes was spent on this discharge, 30 of which was spent [id number] with the patient obtaining history and physical and discussing treatment plan. STEPHANIE HILL [id number]/[facility] #: [id number] [facility]
== END 2018-03-06 11:00 | disposition home or self-care (01) | DRG 641 ==
LOC: ED 09:32 → ICU 11:47 → UNDOADMIN 11:55 → ICU 11:55 → MED 17:59
PROVIDERS: ADMIT Internal Medicine; ATTEND Student in an Organized Health Care Education/Training Program
DX: E87.1 Hypo-osmolality and hyponatremia (principal); M62.82 Rhabdomyolysis; J40 Bronchitis, not specified as acute or chronic; H26.9 Unspecified cataract; R09.82 Postnasal drip; R40.0 Somnolence; Z66 Do not resuscitate; K21.9 Gastro-esophageal reflux disease without esophagitis; Z88.1 Allergy status to other antibiotic agents; Z88.8 Allergy status to other drugs, medicaments and biological substances; Z98.41 Cataract extraction status, right eye; Z80.9 Family history of malignant neoplasm, unspecified; Z87.891 Personal history of nicotine dependence; Z72.89 Other problems related to lifestyle
CPT/HCPCS: 36415; 71046; 71275; 80048; 80053; 82533; 82550; 82553; 83605; 83690; 83735; 83874; 83880; 83930; 83935; 84300; 84443; 84484; 85025; 85379; 85610; 85652; 85730; 86140; 87040; 87641; 93005; 94640; 99282; 99284; A9270-GY; J1644; J3475; Q9967

== ENCOUNTER 2019-08-16 14:15 | Inpatient (IN) | payer MEDICARE ==
--- OUTSIDE RECORDS SUMMARY | 2019-08-16 16:26 | XMS REPORT | Summary of Care ---
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 CAPSULE DELAYED RELEASE albuterol HFA Take by 0 03/06/2018 Active (VENTOLIN) 108 (90 inhalation. Base) MCG/ACT Inhalation Aero Soln benzonatate (TESSALON Take by mouth. 0 03/06/2018 Active PERLES) 100 MG Oral Cap hydrOXYzine HCL Take by mouth. 0 03/06/2018 Active (ATARAX) 25 MG Oral Tab ibuprofen (MOTRIN) 200 Take by mouth. 0 03/02/2018 Active MG Oral Tab sodium chloride 1 g Take by mouth. 0 03/06/2018 Active Oral Tab phenol (CHLORASEPTIC) Q6H PRN For Sore 0 03/06/2018 Active 1.4 % Mouth/Throat Throat Liquid Multiple Take 1 Tab by 0 Active Vitamins-Minerals mouth DAILY. (MULTIVITAMIN ADULT PO) guaiFENesin-codeine Take 10 mL by 0 Active (ROBITUSSIN AC) 100-10 mouth EVERY FOUR MG/5ML Oral Solution HOURS NEEDED. fluticasone (FLONASE) [place] 2 Sprays in 1 Bottle 5 03/09/2018 Active 50 MCG/ACT Nasal nose DAILY. Suspension documented as of this encounter (statuses as of 07/04/2019) Active Problems Problem Noted Date Obesity Overview: This patient's BMI This patient's BMI has been calculated and is above average, and BMI management plan is completed. General patient education discussion including: weight loss link to reduction of r isk factors for cardiac and other diseases, importance of long-term maintenance treatment in weight loss, and accomplish with exercise as tolerated and diet control documented as of this encounter (statuses as of 07/04/2019) Immunizations Name Administration Dates Next Due Influenza (IM) Preservative Free 07/06/2018 Influenza Vaccine High Dose 08/11/2017, 05/12/2016 Pneumococcal Conjugate(13 Valent) 05/12/2016 documented as of this encounter Social History Tobacco Use Types Packs/Day Years Used Date Former Smoker Quit: 09/11/1984 Smokeless Tobacco: Never Used Alcohol Use Drinks/Week oz/Week Comments Yes 6 Standard drinks or equivalent 5.0 2-3 or 1 a day Sex Assigned at Date Recorded Not on file Job Start Date Occupation Industry Not on file Not on file Not on file Travel History Travel Start Travel End No recent travel history available. documented as of this encounter Last Filed Vital Signs Vital Sign Reading Time Taken Comments Blood Pressure 156/80 07/04/2019 1:45 PM EDT Pulse 84 07/04/2019 1:45 PM EDT Temperature 37.8 07/04/2019 1:45 PM C (100.1 EDT F) Respiratory Rate - - Oxygen Saturation 99% 07/04/2019 1:45 PM EDT Inhaled Oxygen Concentration - - Weight 124.3 kg (274 lb) 07/04/2019 1:45 PM EDT Height 180.3 cm (5' 11") 07/04/2019 1:45 PM EDT Body Mass Index 38.22 07/04/2019 1:45 PM EDT documented in this encounter Patient Instructions Patient InstructionsMarisol Linares NP - 07/04/2019 1:40 PM EDT Flonase daily - 2 sprays each nostril daily while symptoms persist, then can go down to 1 spray eachnostril daily. Claritin (loratadine) - one tablet daily. Do not take benadryl. Stay hydrated. Try to avoid allergens. 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 The swelling is a reactionto allergens in the air. An allergen can be anything that causes an allergic reaction. Allergies to weeds, grass, trees, or mold often cause seasonal allergic rhinitis. Indoor dust mites, cockroaches, pet dander, or mold can also cause allergic rhinitis. Common signs and symptoms include the following: Sneezing Nasal congestion Runny nose Itchy nose, eyes, or mouth Red, watery eyes Postnasal drip (nasal drainage down the back of your throat) Cough or frequent throat clearing Feeling tired or lethargic Dark circles under your eyes Call 911 for the following: You have chest pain or shortness of breath. Seek care immediately if: You have severe pain. You cough up blood. Contact your healthcare provider if: You have a fever. You have ear or sinus pain, or a headache. Your symptoms get worse, even after treatment. You have yellow, green, brown, or bloody mucus coming from your nose. Your nose is bleeding or you have pain inside your nose. You have trouble sleeping because of your symptoms. You have questions or concerns about your condition or care. Treatment: Antihistamines help reduce itching, sneezing, and a runny nose. Some antihistamines can make you sleepy. Nasal steroids help decrease inflammation in your nose. Decongestants help clear your stuffy nose. Immunotherapy may be needed if your symptoms are severe or other treatments do not work. Immunotherapy is used to inject an allergen into your skin. At first, the therapy contains tiny amounts ofthe allergen. Your healthcare provider will slowly increase the amount of allergen. This may help your body be less sensitive to the allergen and stop reacting to it. You may need immunotherapy for weeks or longer. Manage allergic rhinitis: The best way to manage allergic rhinitis is to avoid allergens that can trigger your symptoms. Any of the following may help decrease your symptoms: Rinse your nose and sinuses with a salt water solution or use a salt water nasal spray. This will help thin the mucus in your nose and rinse away pollen and dirt. It will also help reduce swelling so you can breathe normally. Ask your healthcare provider how often to rinse your nose. Reduce exposure to dust mites. Wash sheets and towels in hot water every week. Cover your pillows and mattresses with allergen-free covers. Limit the number of stuffed animals and soft toys your child has. Wash your child's toys in hot water regularly. Vacuum weekly and use a vacuum carbon cleaner withan air filter. If possible, get rid of carpets and curtains. These collect dust and dust mites. Reduce exposure to pollen. Keep windows and doors closed in your house and car. Stay inside when air pollution or the pollen count is high. Run your air conditioner on recycle, and change air filters often. Shower and wash your hair before bed every night to rinse away pollen. Reduce exposure to pet dander. If possible, do not keep cats, dogs, birds , or other pets. If you do keep pets in your home, keep them out of bedrooms and carpeted rooms. Bathe them often. Reduce exposure to mold. Do not spend time in basements. Choose artificial plants instead of live plants. Keep your home's humidity at less than 45%. Do not have ponds or standing water in your home or yard. Do not smoke. Avoid others who smoke. Ask your healthcare provider for information if you currently smoke and need help to quit. Follow up with your healthcare provider as directed: Write down your questions so you remember to ask them during your visits. 2016 [employer]. Information is for End User's use only and may not be sold, redistributed or otherwise used for commercial purposes. All illustrations and images included in CareNotes are the copyrighted property of [employer]. or [employer]. The above information is an private duty aide only. It is not intended as medical advice for individual conditions or treatments. Talk to your doctor, nurse or pharmacist before following any medical regimen to see if it is safe and effective for you. documented in this encounter Progress Notes Marisol Linares NP - 07/04/2019 1:40 PM EDT PATIENT: Mark Cabral : 1945 DATE OF SERVICE: 07/04/2019 CHIEF COMPLAINT: Chief Complaint Patient presents with Throat Problem feels like mucus in throat, keeping him from sleeping Anxiety afraid of choking in his sleep Subjective HISTORY OF PRESENT ILLNESS: Mark Cabral is a 73-y.o. male. HPI Feeling of phlegm in chest, having to constantly clear his throat. For years, mid lower chest/epigastric, Tries to use hot liquids or mucinex with some relief but never fully goes away. It has been happening recently the last couple of weeks. When he lays down to sleep he feels the phlegm and will panic when he starts to drift off to sleep, makes him afraid to go to sleep. Has not tried sleeping reclined to know if it helps or not. Then when he gets more tired it gets even harder to fall asleep and gets more panicked when he tries to fall asleep. Yesterday he was very tired and felt a tightness in his chest, no radiation, gone now, lasted until he was able to sleep a bit. Phlegm problem is constant but episodic in that it gets worse and better sometimes, has been ongoing for years. He has seen several healthcare providers for this. He went to the hospital twice for low sodium. He was given an antibiotic previously for possible bronchitis, helped with chest infection but not with the phlegm/coughing. No shortness of breath. No LE edema. Has tried his albuterol inhaler and not helped. Last note from Dr. Nichols 03/09/19 - He has chronic cough always feel like have to clear phlegm. No color if he does spit , most time heswallows it He admits to PND using antihistamines but never tried nasal spray. The cough / mucus does disturb sleep. 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 Past Medical History: Diagnosis Date Cataract removed GERD (gastroesophageal reflux disease) Hyponatremia 2013 Obesity Pulmonary nodule, right 07/25 9 month History reviewed. No pertinent family history. Current Outpatient Medications Medication Sig albuterol HFA (VENTOLIN) 108 (90 Base) MCG/ACT Inhalation Aero Soln Take by inhalation. benzonatate (TESSALON PERLES) 100 MG Oral Cap Take by mouth. fluticasone (FLONASE) 50 MCG/ACT Nasal Suspension [place] 2 Sprays in nose DAILY. guaiFENesin-codeine (ROBITUSSIN AC) 100-10 MG/5ML Oral Solution Take 10 mL by mouth EVERY FOUR HOURS NEEDED. hydrOXYzine HCL (ATARAX) 25 MG Oral Tab Take by mouth. ibuprofen (MOTRIN) 200 MG Oral Tab Take by mouth. Multiple Vitamins-Minerals (MULTIVITAMIN ADULT PO) Take 1 Tab by mouth DAILY. Omeprazole Magnesium 20.6 (20 BASE) MG Oral CAPSULE DELAYED RELEASE Take 1 Cap by mouth DAILY. phenol (CHLORASEPTIC) 1.4 % Mouth/Throat Liquid Q6H PRN For Sore Throat sodium chloride 1 g Oral Tab Take by mouth. No current facility-administered medications for this visit. Allergies Allergen Reactions Levofloxacin GI Reaction Social History Socioeconomic History Marital status: Single Spouse name: Not on file Number of children: Not on file Years of education: Not on file Highest education level: Not on file Occupational History Not on file Social Needs Financial resource strain: Not on file Food insecurity: Worry: Not on file Inability: Not on file Transportation needs: Medical: Not on file Non-medical: Not on file Tobacco Use Smoking status: Former Smoker Last attempt to quit: 09/11/1984 Years since quittin.8 Smokeless tobacco: Never Used Substance and Sexual Activity Alcohol use: Yes Alcohol/week: 5.0 standard drinks Types: 6 drink(s) per week Comment: 2-3 or 1 a day Drug use: No Sexual activity: Not on file Lifestyle Physical activity: Days per week: Not on file Minutes per session: Not on file Stress: Not on file Relationships Social connections: Talks on phone: Not on file Gets together: Not on file Attends mosque service: Not on file Active member of club or organization: Not on file Attends meetings of clubs or organizations: Not on file Relationship status: Not on file Intimate partner violence: Fear of current or ex partner: Not on file Emotionally abused: Not on file Physically abused: Not on file Forced sexual activity: Not on file Other Topics Concern Not on file 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 HENT: Negative for congestion, sinus pain and sore throat. Respiratory: Positive for cough. Negative for shortness of breath. Throat clearing Cardiovascular: Negative for chest pain and palpitations. Psychiatric/Behavioral: The patient is nervous/anxious and has insomnia. Objective PHYSICAL EXAM: VITALS: BP 156/80 | Pulse 84 | Temp 100.1 F (37.8 C) (Tympanic) | Ht 5' 11" (1.803 m) |Wt 274 lb (124.3 kg) | SpO2 99% | BMI 38.22 kg/m Body mass index is 38.22 kg/m. Physical Exam Vitals signs and nursing note reviewed. Constitutional: General: He is not in acute distress. Appearance: Normal appearance. He is well-developed. He is not ill-appearing or toxic-appearing. HENT: Right Ear: Tympanic membrane, ear canal and external ear normal. No mastoid tenderness. Tympanic membrane is not erythematous, retracted or bulging. Left Ear: Tympanic membrane, ear canal and external ear normal. No mastoid tenderness. Tympanic membrane is not erythematous, retracted or bulging. Nose: Nose normal. No mucosal edema. Right Turbinates: Swollen and pale. Left Turbinates: Swollen and pale. Right Sinus: No maxillary sinus tenderness or frontal sinus tenderness. Left Sinus: No maxillary sinus tenderness or frontal sinus tenderness. Mouth/Throat: Mouth: Mucous membranes are moist. Pharynx: Oropharynx is clear. Uvula midline. Posterior oropharyngeal erythema (cobblestoning) present. No oropharyngeal exudate. Tonsils: No tonsillar exudate. Eyes: Conjunctiva/sclera: Conjunctivae normal. Cardiovascular: Rate and Rhythm: Normal rate and regular rhythm. Heart sounds: Normal heart sounds. Pulmonary: Effort: Pulmonary effort is normal. Breath sounds: Normal breath sounds. Lymphadenopathy: Head: Right side of head: No submental, submandibular or tonsillar adenopathy. Left side of head: No submental, submandibular or tonsillar adenopathy. Cervical: No cervical adenopathy. Right cervical: No superficial cervical adenopathy. Left cervical: No superficial cervical adenopathy. Upper Body: Right upper body: No supraclavicular adenopathy. Left upper body: No supraclavicular adenopathy. Neurological: Mental Status: He is alert. Psychiatric: Behavior: Behavior is cooperative. ASSESSMENT / IMPRESSION: ICD-9-CM ICD-10-CM 1. Post-nasal drip 784.91 R09.82 2. Allergic rhinitis, unspecified seasonality, unspecified trigger 477.9 J30.9 Plan 1. Post-nasal drip 2. Allergic rhinitis, unspecified seasonality, unspecified trigger Nasal mucosa is pale and boggy, he has PND and cobblestoning. He is not taking flonase daily, taking once in awhile. Not taking anything else for allergies. He will try taking medications daily, explained to patient these medications need time to build in his system to work well. Flonase daily - 2 sprays each nostril daily while symptoms persist, then can go down to 1 spray eachnostril daily. Claritin (loratadine) - one tablet daily. Do not take benadryl. Stay hydrated. Try to avoid allergens. Author: Marisol Linares NP 07/04/2019 14:19 documented in this encounter Plan of Treatment Health Maintenance Due Date Last Done Comments HIV SCREENING 1961 LIPID DISORDER SCREENING 1964 COLONOSCOPY SCREENING 1996 ZOSTER IMMUNIZATION SERIES (1 1996 of 2) AAA SCREENING/SURVEILLANCE 2011 MEDICARE ANNUAL WELLNESS VISIT 05/12/2017 05/12/2016, 05/12/2016 PNEUMOCOCCAL 65+YRS (2 of 2 - 05/12/2017 05/12/2016 PPSV23) INFLUENZA VACCINE (#1) 2019 07/06/2018, 08/11/2017, 05/12/2016 DEPRESSION SCREENING 07/04/2020 07/04/2019 FALL RISK ASSESSMENT 07/04/2020 07/04/2019, 07/04/2019 HPV IMMUNIZATION SERIES Aged Out No longer eligible based on patient's age to complete this topic MENINGOCOCCAL VACCINE IMM Aged Out No longer eligible based on patient's age to complete this topic documented as of this encounter Results Not on filedocumented in this encounter Visit Diagnoses Diagnosis Post-nasal drip - Primary Postnasal drip Allergic rhinitis, unspecified seasonality, unspecified trigger documented in this encounter Insurance Payer Benefit Plan / Subscriber ID Effective Dates Phone Address Type Group MEDICARE MEDICARE PART A xxxxxxxxxxx 2011-Present Medicare & B [facility]LY [facility] xxxxxxxxxxx 2017-Present [facility] OPTIONS (Work) documented as of this encounter
[2019-08-16 18:04] LABS: ABS Basophils 0.1 10^3/ul (0-0.2); ABS Eosinophils 0.1 10^3/ul (0-0.6); ABS Lymphocytes 1.2 10^3/ul (1.0-4.8); ABS Neutrophils 3.9 10^3/ul (1.5-7.7); Eosinophil % 2.4 %; Hematocrit 41 % (42-52); Hemoglobin 14.4 g/dL (14.0-18.0); Lymphocyte % 19.6 %; Mean Corpuscular HGB Conc 35 g/dL (31-36); Mean Corpuscular Hemoglobin 32 pg (27-31); Mean Corpuscular Volume 91 fL (80-94); Mean Platelet Volume 7.4 fL (7.4-10.4); Nucleated Red Blood Cells % 0.1; Platelet Count 324 10^3/uL (150-450); Red Blood Count 4.51 10^6 /uL (4.18-5.48); Red Cell Distribution Width 13 % (10-15); White Blood Count 6.3 10^3/uL (3.5-10.8)
[2019-08-16 18:15] LABS: Albumin/Globulin Ratio 1.4 (1-3); BUN/Creatinine Ratio 6.7 (8-20); Calcium 9.2 mg/dL (8.6-10.3); EGFR African American 83.8 (>60); EGFR Non-African American 69.2 (>60); Globulin 2.9 g/dL (2-4); Magnesium 1.9 mg/dL (1.9-2.7); Total Bilirubin 0.8 mg/dL (0.2-1.0); Total Protein 6.9 g/dL (6.4-8.9)
[2019-08-16] MEDS ORDERED: NS 0.9% 500 ML* 500 ML IV ONE (19:32)
[2019-08-16] MEDS ORDERED: Ondansetron INJ* 2 MG/ML VIAL IV ONE (19:33)
--- NOTE | 2019-08-16 19:37 | ED ---
Complex/Multi-Sys Presentation - HPI Summary HPI Summary: Pt is a 74 y/o M presenting to the ED with a chief complaint of trouble sleeping. He states that every time he lays down to go to sleep, he becomes anxious and short of breath. He has not slept in 72 hours, and reports nausea. Pt denies any fever, diaphoresis chills, erythema of eyes, sore throat, CP, cough, abdominal pain, vomiting, dysuria, hematuria, myalgia, edema, rash, or dizziness. - History Of Current Complaint Chief Complaint: EDGeneral Time Seen by Provider: 08/16/19 18:54 Hx Obtained From: Patient Onset/Duration: Gradual Onset, Lasting Days, Still Present Timing: Constant, Days Severity Currently: Moderate Severity Initially: Moderate Location: Negative Associated Signs And Symptoms: Positive: SOB, Nausea. Negative: Dizziness, Cough, Chest Pain, Edema, Vomiting, Abdominal Pain, Dysuria, Fever, Diaphoresis - Allergies/Home Medications Allergies/Adverse Reactions: Allergies Allergy/AdvReac Type Severity Reaction Status Date / Time azithromycin Allergy Hallucinati Verified 08/16/19 18:55 [From Zithromax Z-Go] ons prednisone Allergy Hallucinati Verified 08/16/19 18:55 ons PMH/Surg Hx/FS Hx/Imm Hx Previously Healthy: Yes Endocrine/Hematology History: Denies: Hx Diabetes Cardiovascular History: Denies: Hx Hypertension Respiratory History: Reports: Hx Sleep Apnea - refered for sleep study Denies: Hx Asthma, Hx Chronic Obstructive Pulmonary Disease (COPD) GI History: Reports: Hx Gastroesophageal Reflux Disease - ON PRILOSEC Sensory History: Reports: Hx Cataracts - LEFT EYE, Hx 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 RIGHT CATARACT EXTRACTION- DR HIGHTOWER 2009 Hx Anesthesia Reactions: No Infectious Disease History: No Infectious Disease History: Denies: Traveled Outside the [place] in Last 30 Days - Family History Known Family History: Positive: Other - Cancer (mother) - Social History Alcohol Use: Rare Alcohol Amount: 1 or 2 drinks a week, sometimes less Hx Substance Use: No Substance Use Type: Reports: None Hx Tobacco Use: Yes Smoking Status (MU): Former Smoker Type: Cigarettes Review of Systems Negative: Fever, Chills, Skin Diaphoresis Negative: Erythema Negative: Sore Throat Negative: Chest Pain Positive: Shortness Of Breath. Negative: Cough Positive: Nausea. Negative: Abdominal Pain, Vomiting Negative: dysuria, hematuria Negative: Myalgia, Edema Negative: Rash Neurological: Negative - dizziness All Other Systems Reviewed And Are Negative: Yes Physical Exam - Summary Physical Exam Summary: Constitutional: Well-developed, Well-nourished, Alert. (-) Distressed Skin: Warm, Dry HENT: Normocephalic; Atraumatic Eyes: Conjunctiva normal Neck: Musculoskeletal ROM normal neck. (-) JVD, (-) Stridor, (-) Tracheal deviation Cardio: Rhythm regular, rate normal, Heart sounds normal; Intact distal pulses; The pedal pulses are 2+ and symmetric. Radial pulses are 2+ and symmetric. (-) Murmur Pulmonary/Chest wall: Right lower lung field has mild crackles. (-) Respiratory distress, (-) Wheezes, (-) Rales Abd: Soft, (-) tenderness, (-) Distension, (-) Guarding, (-) Rebound Musculoskeletal: (-) Edema Lymph: (-) Cervical adenopathy Neuro: Alert, Oriented x3 Psych: Mood and affect Normal Triage Information Reviewed: Yes Vital Signs On Initial Exam: Initial Vitals Temp Pulse Resp BP Pulse Ox 98.0 F 94 18 150/112 95 08/16/19 14:17 08/16/19 14:17 08/16/19 14:17 08/16/19 14:17 08/16/19 14:17 Vital Signs Reviewed: Yes Procedures - Sedation Patient Received Moderate/Deep Sedation with Procedure: No Diagnostics - Vital Signs Vital Signs Temp Pulse Resp BP Pulse Ox 08/16/19 18:43 98.5 F 80 20 130/78 95 08/16/19 16:30 98.6 F 74 20 154/66 97 08/16/19 14:17 98.0 F 94 18 150/112 95 - Laboratory Lab Results: Lab Results 08/16/19 08/16/19 08/16/19 Range/Units 17:43 17:43 17:43 WBC 6.3 (3.5-10.8) 10^3/uL RBC 4.51 (4.18-5.48) 10^6 /uL Hgb 14.4 (14.0-18.0) g/dL Hct 41 L (42-52) % MCV 91 (80-94) fL MCH 32 H (27-31) pg MCHC 35 (31-36) g/dL RDW 13 (10-15) % Plt Count 324 (150-450) 10^3/uL MPV 7.4 (7.4-10.4) fL Neut % (Auto) 61.6 % Lymph % (Auto) 19.6 % [place] % (Auto) 15.3 % Eos % (Auto) 2.4 % Baso % (Auto) 1.1 % Absolute Neuts (auto) 3.9 (1.5-7.7) 10^3/ul Absolute Lymphs (auto) 1.2 (1.0-4.8) 10^3/ul Absolute Monos (auto) 1.0 H (0-0.8) 10^3/ul Absolute Eos (auto) 0.1 (0-0.6) 10^3/ul Absolute Basos (auto) 0.1 (0-0.2) 10^3/ul Absolute Nucleated RBC 0.0 10^3/ul Nucleated RBC % 0.1 Sodium 119 L* (135-145) mmol/L Potassium 4.0 (3.5-5.0) mmol/L Chloride 88 L (101-111) mmol/L Carbon Dioxide 26 (22-32) mmol/L Anion Gap 5 (2-11) mmol/L BUN 7 (6-24) mg/dL Creatinine 1.05 (0.67-1.17) mg/dL Est GFR ( Amer) 83.8 (>60) Est GFR (Non-Af Amer) 69.2 (>60) BUN/Creatinine Ratio 6.7 L (8-20) Glucose 93 (70-100) mg/dL Lactic Acid 0.9 (0.5-2.0) mmol/L Calcium 9.2 (8.6-10.3) mg/dL Magnesium 1.9 (1.9-2.7) mg/dL Total Bilirubin 0.80 (0.2-1.0) mg/dL AST 24 (13-39) U/L ALT 27 (7-52) U/L Alkaline Phosphatase 57 (34-104) U/L Troponin I 0.00 (<0.03) ng/mL Total Protein 6.9 (6.4-8.9) g/dL Albumin 4.0 (3.2-5.2) g/dL Globulin 2.9 (2-4) g/dL Albumin/Globulin Ratio 1.4 (1-3) Result Diagrams: 08/16/19 17:43 08/16/19 17:43 Lab Statement: Any lab studies that have been ordered have been reviewed, and results considered in the medical decision making process. - Radiology CXR Radiology Interpretation Completed By: ED Physician Summary of Radiographic Findings: No acute disease, pending official radiology report. Complex Multi-Symp Course/Dx Course Of Treatment: Pt is a 74 y/o M presenting to the ED with a chief complaint of trouble sleeping. He states that every time he lays down to go to sleep, he becomes anxious and short of breath. He has not slept in 72 hours. Pt denies any fever, diaphoresis chills, erythema of eyes, sore throat, CP, cough, abdominal pain, vomiting, dysuria, hematuria, myalgia, edema, rash, or dizziness. Right lower lung crackles. CXR shows no acute disease, pending official radiology report. Dr. Srinivasan accepts pt at 2036. - Diagnoses Provider Diagnoses: Hyponatremia - Critical Care Time Critical Care Time: 30-74 min - 65min Discharge ED - Sign-Out/Discharge Documenting (check all that apply): Patient Departure - Discharge Plan Condition: Stable Disposition: ADMITTED TO [facility] Referrals: Omega Nichols MD [Primary Care Provider] - - Attestation Statements Document Initiated by Scribe: Yes Documenting Scribe: Cinthia Hernandez Provider For Whom Ryan is Documenting (Include Credential): Bebeto Griffin MD. Scribe Attestation: Cinthia Gómez, scribed for Bebeto Griffin MD. on 08/16/19 at 2031. Status of Scribe Document: Ready
[2019-08-16 21:54] LABS: Urine Appearance Clear; Urine Bilirubin Negative (Negative); Urine Blood Negative (Negative); Urine Color Yellow; Urine Glucose Negative (Negative); Urine Ketones 1+ (Negative); Urine Nitrite Negative (Negative); Urine Protein Negative (Negative); Urine Specific Gravity 1.005 (1.010-1.030); Urine Urobilinogen Negative (Negative)
[2019-08-16 23:03] LABS: BUN/Creatinine Ratio 6.1 (8-20); Calcium 8.8 mg/dL (8.6-10.3); EGFR African American 89.7 (>60); EGFR Non-African American 74.1 (>60); Potassium 3.9 mmol/L (3.5-5.0)
--- NOTE | 2019-08-16 23:41 | HP ---
CC: Dr. Omega Nichols * ADMISSION HISTORY AND PHYSICAL: DATE OF ADMISSION: 08/16/19 PRIMARY CARE PHYSICIAN: Omega Nichols MD. CHIEF COMPLAINT: Shortness of breath and cough. 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 The patient stated that this is his third episode in the last few years, and each time it was all thought to be due to low sodium. He stated that for the last few days he has been having some dry cough, for which he takes Mucinex along with some chest congestion and insomnia. He has lost all his appetite and was having some nausea and has been feeling very dizzy and exhausted and severely short of breath. So, he finally decided to come to the ER for further evaluation. He denies any fever or chills. Denies any chest pain or abdominal pain. Denies any diarrhea, although he states that he was having multiple very small constipated feeling bowel movements. No other urinary symptoms such as burning sensation, pain with urination, increased or decreased urination. No urological symptoms such as numbness, tingling, or weakness or any other vision problems. He also states that he has had multiple workups done in the past and he is unsure about why he has low sodium. PAST MEDICAL HISTORY: 1. Gastroesophageal reflux disease. 2. Hyperlipidemia, but only takes fish oil. 3. Hyponatremia, thought to be SIADH with previous admission in February 2018 for exact same symptoms with sodium at that time being 117. Given his shortness of breath even at that time, the patient had CT angio of the chest which was negative for any DVT or even any pneumonia. PAST SURGICAL HISTORY: He has had bilateral cataract surgery and a circumcision when he was 13. HOME MEDICATIONS: The patient is only taking [id number] medications includin. Fish oil. 2. Multivitamin. There was an albuterol inhaler in his home med list, but he states that he was prescribed that many years ago ago and he does not take it very often. ALLERGIES: The patient is documented to be allergic to AZITHROMYCIN and PREDNISONE, both of which cause hallucinations. FAMILY HISTORY: The patient's mother is alive at age 99 and lives in [place] and is having some mild memory problem. His father when he was only 4 years old via an accident and he is unsure of any medical problems. SOCIAL HISTORY: He is a former smoker, quit about over 30 years ago. Prior to that had about 25 years history of smoking. He used to drink beer, but now he only drinks beer once in a blue collier. He lives alone and designates his landlords Mark Hernadez and Cecelia Hernadez as his surrogate decision makers, and he previously signed a DNR/DNI and a MOLST form but he forgot to bring it, so a fresh MOLST form was undated with the same DNR/DNI. His next of kin is his mother but he did not want to involve his mother with any healthcare decision as she will soon be 100 in December and she lives in [place]. REVIEW OF SYSTEMS: A 14-point review of systems did not reveal any new information other than what is mentioned in the HPI. PHYSICAL EXAMINATION GENERAL: The patient is awake, alert, oriented x3, did not appear to be in any acute respiratory distress. VITAL SIGNS: In ER, BP was noted to be 142/103, heart rate 62, respiration rate 20, saturating 94% on room air, temperature recorded at 98.6 maximum. HEAD AND NECK: Atraumatic, normocephalic. Bilateral pupils are reactive. Oral mucosa is moist. Neck: Supple. No jugular venous distention. LUNGS: Clear to auscultation bilaterally. No wheezing, rhonchi, or rales. HEART: S1, S2. Regular rate and rhythm. ABDOMEN: Soft, nontender, nondistended. EXTREMITIES: No cyanosis, clubbing or edema. DIAGNOSTIC STUDIES/LAB DATA: CBC was showing hyponatremia with sodium of 119 and chloride of 88, but otherwise rest of the LFTs were within normal limits. B nathan was noted to be 27. Troponin was 0. Lactic acid 0.9. Complete blood count was noted to be unremarkable. Urinalysis showed low specific gravity and 1+ ketones. Negative for any leuk esterase or nitrite. PA lateral chest x-ray was noted to be completely unremarkable without any pulmonary congestion or infiltrates. IMPRESSION: This is a 74-year-old male, here with shortness of breath, who was noted to have hyponatremia and nausea, unclear etiology. ASSESSMENT AND PLAN: 1. Severe hyponatremia. The patient already given gentle hydration. Given history of syndrome of inappropriate antidiuretic hormone secretion, we will also start the patient on salt tabs and repeat sodium tonight and tomorrow morning to check for improvement. We will also perform urine lytes and serum and urine osmolality to see even if this event was due to syndrome of inappropriate antidiuretic hormone secretion versus any secondary causes. 2. Borderline blood pressure. We will monitor his blood pressure to see if he will benefit from any antihypertensives. 3. DVT prophylaxis: On SCDs. 4. Code status: The patient is DNR/DNI and new MOLST was updated. [id number]/[facility] #: [id number] [facility]
[2019-08-17] MEDS: Sodium Chloride TAB* 1 GM PO SCH ×2 (00:28→08:53)
[2019-08-17 06:58] LABS: Urine Potassium Concentration 9.5 mmol/L
--- NOTE | 2019-08-17 07:42 | PN ---
Subjective Date of Service: 08/17/19 Interval History: HD 1 on 08/17 74 y/o M with history of Chronic hyponatremia and GERD presented with Cough and SOB. Found to have normal CXR and hypotonic hyponatremia. ON sodium salts. No acute overnight events VS stable Patient says that he is here because of cough and congestion and tiredness. He is aware that he has hyponatremia. He is on PPI for GERD for about 30 years. he says that he is feeling much better today and he slept well. Although he is having some reflux and discomfort. He is eating well. Objective Active Medications: Sodium Chloride (Sodium Chloride Tab*) 1 gm PO BID TAMARA Last Admin: 08/17/19 00:28 Dose: 1 gm Vital Signs - 8 hr 08/16/19 08/17/19 23:51 03:15 Temperature 97.4 F 97.9 F Pulse Rate 71 75 Respiratory 18 16 Rate Blood Pressure 124/82 134/54 (mmHg) O2 Sat by Pulse 98 95 Oximetry Oxygen Devices in Use Now: None Exam: Patient is lying on a bed in supine position and is not in acute dstress. HEENT: Normocephalic and atraumatic. Sclera anicteric. EOMI. PERRLA. Neck: No lymphadenopathy and enlarged thyroid. NO JVD elevation. Lungs: Good respiratory effort and chest expansion. Clear with no added sound. Heart: Normal in rate and rhythm. S1/S2 heard with no murmur, rubs or gallops. Abdomen: Soft, nondistended and nontender. Normal BS heard. Extremities; No swelling, cyanosis or clubbing Neuro: Alert, oriented and coperative. CN intact. Motor nomral and sensation intact. Result Diagrams: 08/17/19 07:27 08/17/19 07:27 Additional Lab and Data: Lab Results 08/16/19 08/16/19 08/16/19 Range/Units 17:43 17:43 17:43 WBC 6.3 (3.5-10.8) 10^3/uL RBC 4.51 (4.18-5.48) 10^6 /uL Hgb 14.4 (14.0-18.0) g/dL Hct 41 L (42-52) % MCV 91 (80-94) fL MCH 32 H (27-31) pg MCHC 35 (31-36) g/dL RDW 13 (10-15) % Plt Count 324 (150-450) 10^3/uL MPV 7.4 (7.4-10.4) fL Neut % (Auto) 61.6 % Lymph % (Auto) 19.6 % Mclennan % (Auto) 15.3 % Eos % (Auto) 2.4 % Baso % (Auto) 1.1 % Absolute Neuts (auto) 3.9 (1.5-7.7) 10^3/ul Absolute Lymphs (auto) 1.2 (1.0-4.8) 10^3/ul Absolute Monos (auto) 1.0 H (0-0.8) 10^3/ul Absolute Eos (auto) 0.1 (0-0.6) 10^3/ul Absolute Basos (auto) 0.1 (0-0.2) 10^3/ul Absolute Nucleated RBC 0.0 10^3/ul Nucleated RBC % 0.1 Sodium 119 L* (135-145) mmol/L Potassium 4.0 (3.5-5.0) mmol/L Chloride 88 L (101-111) mmol/L Carbon Dioxide 26 (22-32) mmol/L Anion Gap 5 (2-11) mmol/L BUN 7 (6-24) mg/dL Creatinine 1.05 (0.67-1.17) mg/dL Est GFR ( Amer) 83.8 (>60) Est GFR (Non-Af Amer) 69.2 (>60) BUN/Creatinine Ratio 6.7 L (8-20) Glucose 93 (70-100) mg/dL Lactic Acid 0.9 (0.5-2.0) mmol/L Calcium 9.2 (8.6-10.3) mg/dL Magnesium 1.9 (1.9-2.7) mg/dL Total Bilirubin 0.80 (0.2-1.0) mg/dL AST 24 (13-39) U/L ALT 27 (7-52) U/L Alkaline Phosphatase 57 (34-104) U/L Troponin I 0.00 (<0.03) ng/mL Total Protein 6.9 (6.4-8.9) g/dL Albumin 4.0 (3.2-5.2) g/dL Globulin 2.9 (2-4) g/dL Albumin/Globulin Ratio 1.4 (1-3) Assess/Plan/Problems-Billing Assessment: 74 y/o M with history of Chronic hyponatremia and GERD presented with Cough and SOB. Found to have normal CXR and hypotonic hyponatremia. Got IV fluids and sodum salts. Hyponatremia improving - Patient Problems (1) Cough Current Visit: No Status: Acute Priority: High Onset Date: 05/05/14 Code (s): R05 - COUGH SNOMED Code(s): 22695097 Comment: -Patient has history of chronic cough that is on and off associated with congestion -for few days he is having dry cough without any fever or chills -resolved after coming to ED. (2) Hyponatremia Current Visit: No Status: Acute Priority: High Onset Date: 05/05/14 Code (s): E87.1 - HYPO-OSMOLALITY AND HYPONATREMIA SNOMED Code(s): 78435652 Comment: -Severe hyponatremia on presentation; Serum NA of 119. -was not eating and drinking well in last few days -denies numbness, tingling and seizures -Serum osmolarity low; -urine osm-132 and urine Na is 29; which was after he received fluids -has chronic hyponatremia; was suscpicion of SIADH -this episode looks more like hypovolemic hypotonic hyponatremia -Serum Na now is 125 -eating and drinking well. -we will recheck BMP again tomorrow. (3) GERD (gastroesophageal reflux disease) Current Visit: Yes Status: Acute Code(s): K21.9 - GASTRO-ESOPHAGEAL REFLUX DISEASE WITHOUT ESOPHAGITIS SNOMED Code(s): 839578015 Comment: -Has chronic history of GERD -According to patient he follow in [facility] and he is not uptodate with his appt. he had endoscopy done in the past and showed reflux -He is on PPI for about 30 years- PPI is also one of the cause of hyponatremia -we will stop his omeprazole and give him TUMS and famotidine (4) DVT prophylaxis Current Visit: No Status: Acute Code(s): MXJ2378 - SNOMED Code(s): 774609723 Comment: -ambulation (5) DNR (do not resuscitate) Current Visit: No Status: Acute Status and Disposition: inpatient Attending: Fatimha Bell Attestation Documenting Resident: Kerrie Mendez Supervising Physician: Fatimah Bell Attending/Supervising Physician Comment: 74M with h/o SIADH, GERD on PPI, presents with SOB and cough, found with hyponatremia to 119. Urine studies concerning for component of hypovolemia, and patient does report poor PO intake the last few days while he's been experiencing what sounds like a URI. He reports significant improvement in symptoms with IVF, and his sodium is slowly improving. Discussed with patient that PPI could be cause of hyponatremia, and he is amenable to trialing off PPI. He has been on PPI for 30 years. Will try Tums and H2 jen prn for now and follow. His PO intake is good. Attestation: This service has been performed in part by a resident under the direction of a teaching physician.I, Fatimah Bell, performed the service, or was physically present during the critical, or solano portions of the service, furnished by the resident. I participated in the management of the patient.
[2019-08-17 07:44] LABS: ABS Eosinophils 0.2 10^3/ul (0-0.6); ABS Lymphocytes 1.1 10^3/ul (1.0-4.8); ABS Monocytes 0.9 10^3/ul (0-0.8); ABS Neutrophils 3.5 10^3/ul (1.5-7.7); Eosinophil % 3.7 %; Hematocrit 41 % (42-52); Hemoglobin 14.6 g/dL (14.0-18.0); Lymphocyte % 19.1 %; Mean Corpuscular HGB Conc 36 g/dL (31-36); Mean Corpuscular Hemoglobin 32 pg (27-31); Mean Corpuscular Volume 91 fL (80-94); Mean Platelet Volume 7.4 fL (7.4-10.4); Platelet Count 312 10^3/uL (150-450); Red Cell Distribution Width 13 % (10-15); White Blood Count 5.8 10^3/uL (3.5-10.8)
[2019-08-17 08:04] LABS: BUN/Creatinine Ratio 7.1 (8-20); Calcium 8.8 mg/dL (8.6-10.3); EGFR African American 89.7 (>60); EGFR Non-African American 74.1 (>60); Potassium 3.8 mmol/L (3.5-5.0)
[2019-08-17] MEDS ORDERED: Famotidine TAB* 20 MG PO SCH (10:00)
[2019-08-17] MEDS: Calcium Carbonate CHEW TAB* 500 MG (TUMS) PO SCH ×3 (10:36→22:01)
[2019-08-17 12:00] LABS: HDL Cholesterol 40.2 mg/dL
[2019-08-17] MEDS: Famotidine TAB* 20 MG PO PRN (18:43)
[2019-08-17] MEDS: Al Hydrox/Mg Hydrox/Simet LIQ* 30 ML UDC PO PRN (20:37)
[2019-08-18] MEDS: Al Hydrox/Mg Hydrox/Simet LIQ* 30 ML UDC PO PRN ×5 (00:37→16:52)
[2019-08-18] MEDS: Calcium Carbonate CHEW TAB* 500 MG (TUMS) PO SCH ×2 (08:49→13:21)
[2019-08-18] MEDS: Famotidine TAB* 20 MG PO PRN ×2 (08:49→16:52)
[2019-08-18 09:12] LABS: BUN/Creatinine Ratio 9.7 (8-20); Calcium 8.8 mg/dL (8.6-10.3); EGFR African American 85.7 (>60); EGFR Non-African American 70.8 (>60)
[2019-08-18] MEDS ORDERED: NS 0.9% 1000 ML** 1,000 ML IV ONE (09:40)
[2019-08-18 15:24] VITALS: BP 125/55
[2019-08-18 15:41] LABS: BUN/Creatinine Ratio 10.6 (8-20); Calcium 8.7 mg/dL (8.6-10.3); EGFR Non-African American 63.6 (>60); Potassium 3.7 mmol/L (3.5-5.0)
--- NOTE | 2019-08-18 20:42 | DS ---
CC: Dr. Omega Nichols; Dr. Francia Aguilar * DISCHARGE SUMMARY: DATE OF ADMISSION: 08/16/19 DATE OF DISCHARGE: 08/18/19 PRIMARY CARE PROVIDER: Dr. Omega Nichols. [employer] CRUSHING MACHINE OPERATOR: Dr. Francia Aguilar. PRIMARY DIAGNOSES: 1. Hyponatremia likely from syndrome of inappropriate antidiuretic hormone secretion and hypovolemia. 2. Gastroesophageal reflux disease. DISCHARGE MEDICATIONS: 1. Famotidine 20 mg twice a day as needed for reflux. 2. Calcium carbonate chews 500 mg three times a day as needed for reflux. 3. [place]-3 1000 mg daily. 4. Multivitamins 1 tab daily. 5. Albuterol 1 puff every 4 hours as needed for shortness of breath. HISTORY OF PRESENT ILLNESS: Mr. Cabral is a 74-year-old man with hyponatremia thought to be from SIADH and GERD, who presents in the context of coughing, shortness of breath, and inability to fall asleep for 3 days. He states that this is his third episode of these symptoms in the last 5 years and each time he had presented with these symptoms, it has been due to low serum sodium which at one time required an ICU stay. He states that a few days ago, he began to experience a dry cough, which was not improved with Mucinex. He also experienced significant insomnia for these last 3 days. He has experienced loss in appetite and has had very poor p.o. intake associated with nausea, feeling dizzy, tired, and shortness of breath. The patient decided to present to the ER for further evaluation. He denies fever, chills, chest pain, abdominal pain, diarrhea, or urinary symptoms. He denies headaches, focal neuro symptoms, weakness, blurry vision. HOSPITAL COURSE: The patient was given 1 liter of normal saline in the emergency room. His sodium afterwards improved from 119 to 121 and by next morning, after eating breakfast, sodium increased to 125. The patient stated he felt great and back to his baseline and preferred to return home. The patient states he has had multiple workup before for SIADH with unknown cause. He also states he has been on a proton pump inhibitor for the last 30 years for severe GERD symptoms. Medical team expressed to the patient concern over PPI, as they are known to cause SIADH and the patient was amenable to discontinuing this medication, although he did experience rebound reflux, which was controlled with famotidine , Maalox, and Tums. It is also noted that the patient takes ibuprofen approximately 4 times per week, which may be contributing to his GERD symptoms. This was pointed out to the patient. He states he occasionally takes ibuprofen for headaches. It was mentioned that ibuprofen can also be associated with SIADH although he is not taking it frequently enough to likely be the cause. Of note, the patient's urine studies were concerning for component of hypovolemia as well, which is consistent with the patient's history of poor p.o. prior to presentation and then improvement in sodium after fluid challenge. The patient was asked to stay 1 more night to monitor for stability of his sodium and by next morning his serum sodium was again was 125. He was given more fluids and continued to eat throughout the day and on repeat he was 124. The patient states that he has good follow up and is able to come and get labs again in 2 days. He also prefers to follow up with a supervisor offset plate preparation for ongoing monitoring of his SIADH off PPI. On day of discharge, 10-point review of systems was performed and the patient denied all symptoms. He states that his insomnia, cough, and shortness of breath have all resolved. He denies focal neuro symptoms and headaches. PHYSICAL EXAMINATION: Afebrile. Heart rate 81, blood pressure 125/85, respiratory rate 18, oxygen saturation 100 on room air. In general, he is a well-appearing, affable man in no acute distress. He is alert and interactive. Neck: Supple. No JVD. HEENT with moist mucous membranes, OP clear. Lungs clear to auscultation bilaterally. Heart: Regular rate and rhythm. No murmurs , gallops or rub. Abdomen: Soft, nontender, and nondistended. Extremities: Warm, well perfused without evidence of edema. Neuro: A&O x3. C2-12 intact. Gait normal. PERTINENT DIAGNOSTIC STUDIES: CBC and LFTs unremarkable. BMP with serum sodium 124, stable for over 24 hours. LDL 105 with triglycerides 53. BNP 27. Urine osms 132, increased to 171 after better p.o. intake. Urine sodium concentration 29 and decreased to less than 18. Chest x-rays without acute cardiopulmonary process. DISCHARGE PLAN: The patient should follow up with his primary care physician, Dr. Omega Nichols, and he was also referred to follow up in [facility] with Dr. Francia Aguilar. He is to have a repeat BMP in 2 days for monitoring of his serum sodium. His proton pump inhibitor was discontinued and he was initiated on H2 blockers, Tums, and Maalox over the counter to take as needed to control his GERD symptoms. Also, he was encouraged to avoid NSAIDs, which can make heartburn worse and may also contribute to SIADH. He should eat a healthy diet, low processed foods, and was encouraged to maintain good solute intake if he again gets sick and has poor p.o. intake. He should resume activity as tolerated. DISPOSITION: Home. CONDITION: Good. TIME SPENT: Approximately 60 minutes was spent on discharge of this patient, more than half of which was spent with care coordination at bedside for interview and exam. [id number]/[facility] #: [id number] [facility]
== END 2019-08-18 17:15 | disposition home or self-care (01) | DRG 645 ==
LOC: ED 14:15 → MED 21:43
PROVIDERS: ADMIT Internal Medicine; ATTEND Internal Medicine
DX: E22.2 Syndrome of inappropriate secretion of antidiuretic hormone (principal); E86.1 Hypovolemia; K21.9 Gastro-esophageal reflux disease without esophagitis; R03.0 Elevated blood-pressure reading, without diagnosis of hypertension; Z66 Do not resuscitate; R05 Cough; Z88.1 Allergy status to other antibiotic agents; Z88.8 Allergy status to other drugs, medicaments and biological substances; Z87.891 Personal history of nicotine dependence
CPT/HCPCS: 36415; 71046; 80048; 80053; 80061; 81003; 82436; 83605; 83735; 83880; 83930; 83935; 84133; 84300; 84484; 85025; 96374; 99284; A9270-GY; J2405